=== PATIENT | male | born 1950 | race Caucasian/White ===

== ENCOUNTER 2022-06-29 15:52 | Emergency (ER) | payer BC, MEDICARE ==
[2022-06-29] MEDS ORDERED: PANTOPRAZOLE 40 MG/10 ML VIAL IVP ONE (16:24)
--- NOTE | 2022-06-29 16:26 | ED ---
GI Bleed HPI - General Chief complaint: GI Bleed Stated complaint: GI Bleed Time Seen by Provider: 06/29/22 16:06 Source: patient, EMS, RN notes reviewed Mode of arrival: EMS Limitations: no limitations - History of Present Illness Initial comments: This is a pleasant 71-year-old male with a history of COPD. He presents to the emergency department today complaining of melena. Patient has had about 6 episodes of dark black stool since yesterday. According to the patient's , who is an RN, patient has also been tachycardic, lightheaded, patient also had 2 episodes of syncope. According to the the patient had just stood up and had to sit back down and actually lost consciousness. There was no injury during either event. Patient then had a second syncopal episode when EMS arrived. This been no vomiting. Patient not complaining of any pain at this time. Patient previously had need for blood transfusion and is on a proton pump inhibitor. Apparently this occurred a few years ago. There was no site of bleeding found on either lower or upper endoscopy. Patient does admit to taking about 4 [id number] Aleve per day for wrist pain. POSITIVE lightheadedness and weakness, No headache, no fever or chills, no changes in vision or hearing, no sore throat or difficulty with speech, no neck pain, no chest pain or shortness of breath, no abdominal pain, no nausea or vomiting, no changes in urination or bowel movements, no numbness or tingling, no extremity pain, no skin rashes or lesions. Past medical, surgical, social, and family history reviewed. complaint: melena - Related Data Allergies Allergy/AdvReac Type Severity Reaction Status Date / Time No Known Allergies Allergy Verified 06/29/22 16:07 Review of Systems ROS Statement: Those systems with pertinent positive or pertinent negative responses have been documented in the HPI. ROS Other: All systems not noted in ROS Statement are negative. Past Medical History Past Medical History: COPD, CVA/TIA, Hypertension, Syncope History of Any Multi-Drug Resistant Organisms: None Reported Past Surgical History: Hernia Repair Past Psychological History: Depression Smoking Status: Former smoker Past Alcohol Use History: None Reported Past Drug Use History: None Reported General Exam - General Exam Comments Initial Comments: Vital signs stable, patient afebrile. Patient appears to be a bit pale but does have a capillary refill of less than 2 seconds. There is no evidence of mottling. Moist mucous membranes. Cranial nerves II through XII grossly intact Limitations: no limitations General appearance: alert, in distress (Minimal) Head exam: Present: atraumatic, normocephalic, normal inspection Eye exam: Present: normal appearance, PERRL, EOMI. Absent: scleral icterus, conjunctival injection, periorbital swelling ENT exam: Present: normal exam, mucous membranes moist, normal external ear exam Neck exam: Present: normal inspection. Absent: tenderness, meningismus, lymphadenopathy Respiratory exam: Present: normal lung sounds bilaterally. Absent: respiratory distress, wheezes, rales, rhonchi, stridor Cardiovascular Exam: Present: regular rate, normal rhythm, normal heart sounds. Absent: systolic murmur, diastolic murmur, rubs, gallop, clicks GI/Abdominal exam: Present: soft, normal bowel sounds. Absent: distended, t enderness, guarding, rebound, rigid Rectal exam: Present: normal rectal tone, black stool, other (Chaperoned rectal examination) Extremities exam: Present: normal inspection, full ROM, normal capillary refill. Absent: tenderness, pedal edema, joint swelling, calf tenderness Back exam: Present: normal inspection Neurological exam: Present: alert, oriented X3, CN II-XII intact Psychiatric exam: Present: normal affect, normal mood Skin exam: Present: warm, dry, intact, pallor. Absent: rash, cyanosis, diaphoretic, erythema, urticaria, vesicles, petechiae Course Vital Signs 06/29/22 06/29/22 15:58 17:46 Temperature 97.4 F L Pulse Rate 95 87 Respiratory 16 15 Rate Blood Pressure 139/81 115/81 O2 Sat by Pulse 96 97 Oximetry - Reevaluation(s) Reevaluation #1: 06/29/22 18:27 Lactic acid 2.5. Likely related to hydration status is the patient does not appear to be ill, at least with regards of being septic. The case was discussed in detail with ED attending physician. Presentation, findings, treatment plan discussed in detail. Head Refrigeration Engineer Dr. Mahoney Reevaluation #2: 06/29/22 18:59 Medical record is reviewed Symptoms are improved here in the emergency department Patient is informed of results and questions answered Patient in no distress - Consultations Consultation #1: This discussed in detail with the accepting physician at [facility], Dr. Yates who had sepsis transfer the patient. The transfer procedure and the need for transfer to the patient. Patient voices understanding. Medical Decision Making - Medical Decision Making Patient presents with several episodes of melena, possible diarrhea. Rectal exam was melanotic. Patient in no significant pain. Patient was tachycardic prior to arrival received IV fluids via EMS. Patient hemodynamic stable currently. Patient was noted to have 2 syncopal episodes prior to arrival. Patient likely has gastrointestinal bleeding. Pro time is 80 mg IV push ordered. We'll order a general labs for gastrointestinal bleeding to include cardiac markers. Type and screen, computed tomography scan abdomen and pelvis. Patient likely will need transfer. Patient transferred to [facility] - Lab Data Result diagrams: 06/29/22 17:00 06/29/22 17:00 Lab Results 06/29/22 06/29/22 06/29/22 Range/Units 16:59 17:00 17:00 WBC 11.7 H (3.8-10.6) k/uL RBC 4.60 (4.30-5.90) m/uL Hgb 13.3 (13.0-17.5) gm/dL Hct 39.5 (39.0-53.0) % MCV 86.0 (80.0-100.0) fL MCH 29.0 (25.0-35.0) pg MCHC 33.7 (31.0-37.0) g/dL RDW 13.8 (11.5-15.5) % Plt Count 217 (150-450) k/uL MPV 8.3 Neutrophils % 81 % Lymphocytes % 10 % Monocytes % 6 % Eosinophils % 1 % Basophils % 1 % Neutrophils # 9.5 H (1.3-7.7) k/uL Lymphocytes # 1.2 (1.0-4.8) k/uL Monocytes # 0.7 (0-1.0) k/uL Eosinophils # 0.1 (0-0.7) k/uL Basophils # 0.1 (0-0.2) k/uL Hypochromasia Slight PT (9.0-12.0) sec INR (<1.2) APTT (22.0-30.0) sec Sodium (137-145) mmol/L Potassium (3.5-5.1) mmol/L Chloride (98-107) mmol/L Carbon Dioxide (22-30) mmol/L Anion Gap mmol/L BUN (9-20) mg/dL Creatinine (0.66-1.25) mg/dL Est GFR (CKD-EPI)AfAm (>60 ml/min/1.73 sqM) Est GFR (CKD-EPI)NonAf (>60 ml/min/1.73 sqM) Glucose (74-99) mg/dL Plasma Lactic Acid Dayday (0.7-2.0) mmol/L Calcium (8.4-10.2) mg/dL Magnesium (1.6-2.3) mg/dL Total Bilirubin (0.2-1.3) mg/dL AST (17-59) U/L ALT (4-49) U/L Alkaline Phosphatase (38-126) U/L Troponin I (0.000-0.034) ng/mL NT-Pro-B Natriuret Pep pg/mL Total Protein (6.3-8.2) g/dL Albumin (3.5-5.0) g/dL Stool Occult Blood Positive (Negative) Blood Type A Negative Blood Type Confirm Blood Type Recheck No Previous Record Bld Type Recheck Status CABO Indicated Antibody Screen NEGATIVE Spec Expiration Date 07/02/2022 - 235806/29/22 06/29/22 06/29/22 Range/Units 17:00 17:00 17:00 WBC (3.8-10.6) k/uL RBC (4.30-5.90) m/uL Hgb (13.0-17.5) gm/dL Hct (39.0-53.0) % MCV (80.0-100.0) fL MCH (25.0-35.0) pg MCHC (31.0-37.0) g/dL RDW (11.5-15.5) % Plt Count (150-450) k/uL MPV Neutrophils % % Lymphocytes % % Monocytes % % Eosinophils % % Basophils % % Neutrophils # (1.3-7.7) k/uL Lymphocytes # (1.0-4.8) k/uL Monocytes # (0-1.0) k/uL Eosinophils # (0-0.7) k/uL Basophils # (0-0.2) k/uL Hypochromasia PT 10.7 (9.0-12.0) sec INR 1.0 (<1.2) APTT 20.9 L (22.0-30.0) sec Sodium 137 (137-145) mmol/L Potassium 4.4 (3.5-5.1) mmol/L Chloride 109 H (98-107) mmol/L Carbon Dioxide 21 L (22-30) mmol/L Anion Gap 7 mmol/L BUN 40 H (9-20) mg/dL Creatinine 0.76 (0.66-1.25) mg/dL Est GFR (CKD-EPI)AfAm >90 (>60 ml/min/1.73 sqM) Est GFR (CKD-EPI)NonAf >90 (>60 ml/min/1.73 sqM) Glucose 113 H (74-99) mg/dL Plasma Lactic Acid Dayday 2.5 H* (0.7-2.0) mmol/L Calcium 8.1 L (8.4-10.2) mg/dL Magnesium 2.0 (1.6-2.3) mg/dL Total Bilirubin 0.6 (0.2-1.3) mg/dL AST 23 (17-59) U/L ALT 18 (4-49) U/L Alkaline Phosphatase 64 (38-126) U/L Troponin I (0.000-0.034) ng/mL NT-Pro-B Natriuret Pep pg/mL Total Protein 6.5 (6.3-8.2) g/dL Albumin 3.7 (3.5-5.0) g/dL Stool Occult Blood (Negative) Blood Type Blood Type Confirm Blood Type Recheck Bld Type Recheck Status Antibody Screen Spec Expiration Date 06/29/22 06/29/22 06/29/22 Range/Units 17:00 17:00 17:03 WBC (3.8-10.6) k/uL RBC (4.30-5.90) m/uL Hgb (13.0-17.5) gm/dL Hct (39.0-53.0) % MCV (80.0-100.0) fL MCH (25.0-35.0) pg MCHC (31.0-37.0) g/dL RDW (11.5-15.5) % Plt Count (150-450) k/uL MPV Neutrophils % % Lymphocytes % % Monocytes % % Eosinophils % % Basophils % % Neutrophils # (1.3-7.7) k/uL Lymphocytes # (1.0-4.8) k/uL Monocytes # (0-1.0) k/uL Eosinophils # (0-0.7) k/uL Basophils # (0-0.2) k/uL Hypochromasia PT (9.0-12.0) sec INR (<1.2) APTT (22.0-30.0) sec Sodium (137-145) mmol/L Potassium (3.5-5.1) mmol/L Chloride (98-107) mmol/L Carbon Dioxide (22-30) mmol/L Anion Gap mmol/L BUN (9-20) mg/dL Creatinine (0.66-1.25) mg/dL Est GFR (CKD-EPI)AfAm (>60 ml/min/1.73 sqM) Est GFR (CKD-EPI)NonAf (>60 ml/min/1.73 sqM) Glucose (74-99) mg/dL Plasma Lactic Acid Dayday (0.7-2.0) mmol/L Calcium (8.4-10.2) mg/dL Magnesium (1.6-2.3) mg/dL Total Bilirubin (0.2-1.3) mg/dL AST (17-59) U/L ALT (4-49) U/L Alkaline Phosphatase (38-126) U/L Troponin I <0.012 (0.000-0.034) ng/mL NT-Pro-B Natriuret Pep 205 pg/mL Total Protein (6.3-8.2) g/dL Albumin (3.5-5.0) g/dL Stool Occult Blood (Negative) Blood Type Blood Type Confirm A Negative Blood Type Recheck Bld Type Recheck Status Antibody Screen Spec Expiration Date - EKG Data EKG Comments: EKG done at 1601 and review by the ED attending physician. Reveals sinus rhythm with occasional supraventricular premature complexes. Normal axis. Normal intervals. No acute ST or T-wave changes. - Radiology Data Radiology results: report reviewed (Radiographic imaging interpreted by me. No evidence of acute pathology. Concur with radiology interpretation.), image reviewed Disposition Clinical Impression: Gastrointestinal bleeding Disposition: OTHER INSTITUTION NOT DEFINED Condition: Stable Referrals: Nonstaff,Physician [REFERRING] - 1-2 days Time of Disposition: 19:38 Decision to Admit Reason: Admit from EC Decision Time: 19:38 - Out of Hospital Transfer - Req. Specs Out of Hospital Transfer - Requested Specifics: Other Emergency Center (Dr. Trudy Hammond excepting)
[2022-06-29] MEDS ORDERED: SODIUM CHLORIDE 0.9% 1,000 ML IV SCH (16:30)
[2022-06-29 17:19] LABS: Basophils # (A) 0.1 k/uL (0-0.2); Basophils % (A) 1 %; Eosinophils # (A) 0.1 k/uL (0-0.7); Eosinophils % (A) 1 %; HCT 39.5 % (39.0-53.0); HGB 13.3 gm/dL (13.0-17.5); Hypochromasia Slight; Lymphocytes # (A) 1.2 k/uL (1.0-4.8); Lymphocytes % (A) 10 %; MCHC 33.7 g/dL (31.0-37.0); Mean Platelet Volume 8.3; Monocytes # (A) 0.7 k/uL (0-1.0); Monocytes % (A) 6 %; Neutrophils # (A) 9.5 k/uL (1.3-7.7); Neutrophils % (A) 81 %; Platelet Count 217 k/uL (150-450); RDW 13.8 % (11.5-15.5); WBC 11.7 k/uL (3.8-10.6)
--- NOTE | 2022-06-29 17:22 | XR ---
EXAMINATION TYPE: XR chest 1V portable DATE OF EXAM: 06/29/2022 COMPARISON: NONE HISTORY: Syncope TECHNIQUE: Single view FINDINGS: Heart and mediastinum are normal. Lungs are clear. Diaphragm is normal. Bony thorax is inta ct. There is hiatal hernia. IMPRESSION: No active cardiopulmonary disease. Hiatal hernia noted.
[2022-06-29 17:40] LABS: Prothrombin Time 10.7 sec (9.0-12.0)
[2022-06-29 17:46] LABS: ALT 18 U/L (4-49); AST 23 U/L (17-59); African American GFR (CKD) >90 (>60 ml/min/1.73 sqM); Albumin 3.7 g/dL (3.5-5.0); Alkaline Phosphatase 64 U/L (38-126); Anion Gap 7 mmol/L; Blood Urea Nitrogen 40 mg/dL (9-20); Calcium 8.1 mg/dL (8.4-10.2); Carbon Dioxide 21 mmol/L (22-30); Chloride 109 mmol/L (98-107); Glucose 113 mg/dL (74-99); Non-African American GFR(CKD) >90 (>60 ml/min/1.73 sqM); Potassium 4.4 mmol/L (3.5-5.1); Sodium 137 mmol/L (137-145); Total Bilirubin 0.6 mg/dL (0.2-1.3); Total Protein 6.5 g/dL (6.3-8.2)
--- NOTE | 2022-06-29 18:59 | CT ---
EXAMINATION TYPE: CT angio abdomen pelvis DATE OF EXAM: 06/29/2022 COMPARISON: None HISTORY: Dark red stool today and abdominal pain. CT DLP: 1489.1 mGycm Automated exposure control for dose reduction was used. CONTRAST: Performed without and with IV Contrast, patient injected with 100ml mL of Isovue 370. There are Three-D postprocessed images. Exam performed without and with the IV contrast. There is a large hiatal hernia. There is no pleural effusion. No pericardial effusion. Liver spleen p ancreas gallbladder appear intact. The bile ducts are not dilated. There is no adrenal mass. Kidneys show normal size and contour. No hydronephrosis. Ureters are not di lated. Appendix appears normal. There is small appendicolith. Bladder distends smoothly. There are sm all bilateral fat-containing inguinal hernias. No free fluid in the pelvis. No pelvic mass. No mesenteric edema. No ascites or free air. No sign of a bowel obstruction. Lumbar vertebrae have no rmal alignment. No compression fracture. Bony pelvis is intact. The hip joints are intact. There are multiple colonic diverticula. There is arterial flow in the celiac artery and superior mesenteric artery. There is arterial flow in the renal and iliac and femoral arteries. No evidence of hemodynamic stenosis. No arterial aneurysm or dissection. Abdominal aorta is atheromatous. No evidence of contrast extravasation. IMPRESSION: Mild atherosclerotic vascular calcification. No evidence of hemodynamic stenosis. No arterial aneurys m or dissection. No evidence of any active GI bleeding.
[2022-06-29 19:28] LABS: Partial Thromboplastin Time 20.9 sec (22.0-30.0)
[2022-06-29 21:28] VITALS: BP 137/87; PULSE 80; RESP 19; TEMP 98.4
== END 2022-06-29 21:27 | disposition other institution (70) ==
LOC: EC 15:52
DX: K92.2 Gastrointestinal hemorrhage, unspecified (principal); J44.9 Chronic obstructive pulmonary disease, unspecified; I10 Essential (primary) hypertension; F32.A Depression, unspecified; Z87.891 Personal history of nicotine dependence
CPT/HCPCS: 36415; 93005; 86900; 86901; 83880; 80053; 83605; 83735; 84484; 85025; 85610; 85730; 86850; 82272; 71045; 74174; 99285; 96374; 96361 ×4; C9113; Q9967; 96372

== ENCOUNTER 2023-10-09 18:23 | Emergency (ER) | payer BC, MEDICARE ==
[2023-10-09 19:05] LABS: Anisocytosis Slight; Basophils # (A) 0.1 k/uL (0-0.2); Basophils % (A) 1 %; Eosinophils # (A) 0.4 k/uL (0-0.7); Eosinophils % (A) 7 %; HCT 34.5 % (39.0-53.0); HGB 10.4 gm/dL (13.0-17.5); Hypochromasia Marked; Lymphocytes % (A) 18 %; MCH 19.9 pg (25.0-35.0); MCHC 30.2 g/dL (31.0-37.0); MCV 65.8 fL (80.0-100.0); Mean Platelet Volume 7.6; Microcytosis Marked; Monocytes # (A) 0.4 k/uL (0-1.0); Monocytes % (A) 6 %; Neutrophils # (A) 3.9 k/uL (1.3-7.7); Neutrophils % (A) 66 %; Platelet Count 303 k/uL (150-450); Poikilocytosis Slight; RBC 5.25 m/uL (4.30-5.90); RDW 17.7 % (11.5-15.5); WBC 5.9 k/uL (3.8-10.6)
[2023-10-09 19:28] LABS: ALT 29 U/L (4-49); AST 44 U/L (17-59); African American GFR (CKD) 85 (>60 ml/min/1.73 sqM); Albumin 3.6 g/dL (3.5-5.0); Alkaline Phosphatase 67 U/L (38-126); Anion Gap 6 mmol/L; Blood Urea Nitrogen 9 mg/dL (9-20); Calcium 8.2 mg/dL (8.4-10.2); Carbon Dioxide 20 mmol/L (22-30); Chloride 110 mmol/L (98-107); Glucose 111 mg/dL (74-99); Non-African American GFR(CKD) 73 (>60 ml/min/1.73 sqM); Potassium 3.9 mmol/L (3.5-5.1); Sodium 136 mmol/L (137-145); Total Bilirubin 0.7 mg/dL (0.2-1.3); Total Protein 6.9 g/dL (6.3-8.2)
--- NOTE | 2023-10-09 19:30 | XR ---
EXAMINATION TYPE: XR chest 2V DATE OF EXAM: 10/09/2023 COMPARISON: 06/29/2022 INDICATION: Shortness of breath hypertension TECHNIQUE: Frontal and lateral views of the chest are obtained. FINDINGS: The heart size is normal. The pulmonary vasculature is normal. There may be some left perihilar infiltrate present. Follow-up is recommended. IMPRESSION: 1. Small opacity at the left hilar region. Correlate for an infiltrate such as atelectasis or pneumon ia. Mass is not excluded. Follow-up is recommended. 2. Acute pulmonary process not otherwise apparent.
[2023-10-09 19:41] LABS: Prothrombin Time 11.2 sec (10.0-12.5)
[2023-10-09 19:46] LABS: Partial Thromboplastin Time 18.8 sec (22.0-30.0)
--- NOTE | 2023-10-09 20:05 | ED ---
General Adult HPI - General Source: patient Mode of arrival: ambulatory Limitations: no limitations <Hugo Kitchen - Last Filed: 10/09/23 20:05> <Ean Odom - Last Filed: 10/10/23 00:22> - General Chief complaint: Shortness of Breath Stated complaint: HTN Time Seen by Provider: 10/09/23 20:04 - History of Present Illness Initial comments: Quicknote 72-year-old male presents to ED with a chief complaint of shortness of breath. She states the past few days has been more fatigued than usual, has a cough, and has had more out of breath than usual. (Hugo Kitchen) Dictation was produced using avVenta dictation software. please excuse any grammatical, word or spelling errors. Chief Complaint: 72-year-old male presents with hypertension History of Present Illness: Patient 72-year-old male presents to the emergency department hypertension. Patient had a brief nosebleed while running errands today. decided to check his blood pressure. It was allegedly 175/105. Patient has history of hypertension takes antihypertensive medications. He has no headache. No chest pain or shortness of breath and no focal neurologic deficits. Patient otherwise has no complaints. Patient does report having been feeling slightly weak last 3 to 4 days. The ROS documented in this emergency department record has been reviewed and confirmed by me. Those systems with pertinent positive or negative responses have been documented in the HPI. All other systems are other negative and/or noncontributory. (Ean Odom) - Related Data Home Medications Medication Instructions Recorded Confirmed Aspirin EC [Ecotrin Low Dose] 81 mg PO DAILY 06/29/22 06/29/22 Escitalopram [Lexapro] 20 mg PO DAILY 06/29/22 06/29/22 Esomeprazole Magnesium [NexIUM] 40 mg PO DAILY 06/29/22 06/29/22 Ipratropium [place] [Atrovent Hfa] 2 puff INHALATION RT-QID PRN 06/29/22 06/29/22 Naproxen Sodium [Aleve] 440 mg PO DAILY 06/29/22 06/29/22 Allergies Allergy/AdvReac Type Severity Reaction Status Date / Time No Known Allergies Allergy Verified 06/29/22 20:10 Review of Systems ROS Other: All systems not noted in ROS Statement are negative. <Hugo Kitchen - Last Filed: 10/09/23 20:05> ROS Other: All systems not noted in ROS Statement are negative. <Ean Odom - Last Filed: 10/10/23 00:22> ROS Statement: Those systems with pertinent positive or pertinent negative responses have been documented in the HPI. Past Medical History Past Medical History: COPD, CVA/TIA, Hypertension, Syncope History of Any Multi-Drug Resistant Organisms: None Reported Past Surgical History: Hernia Repair Past Psychological History: Depression Smoking Status: Former smoker Past Alcohol Use History: None Reported Past Drug Use History: None Reported <Hugo Kitchen - Last Filed: 10/09/23 20:05> General Exam Limitations: no limitations <Hugo Kitchen - Last Filed: 10/09/23 20:05> <Ean Odom - Last Filed: 10/10/23 00:22> - General Exam Comments Initial Comments: Visual Physical Exam Vital signs reviewed General: Well-appearing, nontoxic, no acute distress. Head: Normocephalic, atraumatic Eyes: PERRLA, EOMI ENT: Airway patent Chest: Nonlabored breathing Skin: No visual rash, normal skin tone Neuro: Alert and oriented 3 Musculoskeletal: No gross abnormalities (Hugo Kitchen) PHYSICAL EXAM: General Impression: Alert and oriented x3, not in acute distress HEENT: Normocephalic atraumatic, extra-ocular movements intact, pupils equal and reactive to light bilaterally, mucous membranes moist. Cardiovascular: Heart regular rate and rhythm Chest: Able to complete full sentences, no retractions, no tachypnea Abdomen: abdomen soft, non-tender, non-distended, no organomegaly Musculoskeletal: Pulses present and equal in all extremities, no peripheral edema Motor: no focal deficits noted Neurological: CN II-XII grossly intact, no focal motor or sensory deficits noted Skin: Intact with no visualized rashes Psych: Normal affect and mood (Ean Odom) Course Vital Signs 10/09/23 10/09/23 10/09/23 18:29 22:00 23:44 Temperature 98.2 F 97.8 F Pulse Rate 86 72 78 Respiratory 16 18 18 Rate Blood Pressure 155/93 161/122 149/69 O2 Sat by Pulse 97 98 98 Oximetry Medical Decision Making - Lab Data Result diagrams: 10/09/23 18:56 10/09/23 18:56 <Hugo Kitchen - Last Filed: 10/09/23 20:05> - Lab Data Result diagrams: 10/09/23 18:56 10/09/23 18:56 <Ean Odom - Last Filed: 10/10/23 00:22> - Medical Decision Making Quicknote portion performed. Signed Hugo Kitchen PA-C (Hugo Kitchen) Was pt. sent in by a medical professional or institution (, KRISTIAN, LICENSED AND CERTIFIED MIDWIFE, urgent care, hospital, or [facility]...) When possible be specific @ -No Did you speak to anyone other than the patient for history (EMS, parent, family, police, friend...)? What history was obtained from this source @ -No Did you review nursing and triage notes (agree or disagree)? Why? @ -I reviewed and agree with nursing and triage notes Were old charts reviewed (outside hosp., previous admission, EMS record, old EKG, old radiological studies, urgent care reports/EKG's, [facility] records)? Report findings @ -No old charts were reviewed Differential Diagnosis (chest pain, altered mental status, abdominal pain women, abdominal pain men, vaginal bleeding, musculoskeletal, weakness, fever, dyspnea, syncope, headache, dizziness, GI bleed, back pain, seizure, CVA, palpatations, mental health)? @ -Not applicable EKG interpreted by me (3pts min.). @ -None done X-rays interpreted by me (1pt min.). @ -Chest x-ray is unremarkable CT interpreted by me (1pt min.). @ -None done U/S interpreted by me (1pt. min.). @ -None done What testing was considered but not performed or refused? (CT, X-rays, U/S, labs)? Why? @ -None What meds were considered but not given or refused? Why? @ -None Did you discuss the management of the patient with other professionals (professionals i.e. , KRISTIAN, LICENSED AND CERTIFIED MIDWIFE, lab, RT, psych nurse, social media executive, doughnut glazier, teacher, aoc airspace control officer, case management director)? Give summary @ -No Was smoking cessation discussed for >3mins.? @ -No Was critical care preformed (if so, how long)? @ -No Were there social determinants of health that impacted care today? How? (Homelessness, low income, unemployed, alcoholism, drug addiction, transportation, low edu. Level, literacy, decrease access to med. care, fdc, rehab)? @ -No Was there de-escalation of care discussed even if they declined (Discuss DNR or withdrawal of care, Hospice)? DNR status @ -No What co-morbidities impacted this encounter? (DM, HTN, Smoking, COPD, CAD, Cancer, CVA, ARF, Chemo, Hep., AIDS, mental health diagnosis, sleep apnea, morbid obesity)? @ -None Was patient admitted / discharged? Hospital course, mention meds given and route, prescriptions, significant lab abnormalities, going to OR and other pertinent info. @ -72-year-old male presents to the emergency department for asymptomatic hypertension. Vital signs stable. Patient well-appearing at the bedside. Labs ordered by triage physician human resources assistant was reviewed. He did have a lactic acidosis of 2.9. Rest of labs within acceptable limits. Patient given IV fluids. Repeat lactic is 1.2. Blood pressure and rest of vital signs improved. Patient observed emergency department for 5 hours and 40 minutes and on reevaluation is well-appearing stable for discharge. Vies follow-up with primary care doctor. Undiagnosed new problem with uncertain prognosis? @ -No Drug Therapy requiring intensive monitoring for toxicity (Heparin, Nitro, Insulin, Cardizem)? @ -No Were any procedures done? @ -No Diagnosis/symptom? Acute, or Chronic, or Acute on Chronic? Uncomplicated (without systemic symptoms) or Complicated (systemic symptoms)? @ -Asymptomatic hypertension Side effects of treatment? @ -No Exacerbation, Progression, or Severe Exacerbation? @ -No Poses a threat to life or bodily function? How? (Chest pain, [place], PR, pneumonia, PE, COPD, DKA, ARF, appy, cholecystitis, CVA, Diverticulitis, Homicidal, Suicidal, threat to staff... and all critical care pts) @ -No (Ean Odom) - Lab Data Lab Results 10/09/23 10/09/23 10/09/23 Range/Units 18:56 18:56 18:56 WBC 5.9 (3.8-10.6) k/uL RBC 5.25 (4.30-5.90) m/uL Hgb 10.4 L (13.0-17.5) gm/dL Hct 34.5 L (39.0-53.0) % MCV 65.8 L (80.0-100.0) fL MCH 19.9 L (25.0-35.0) pg MCHC 30.2 L (31.0-37.0) g/dL RDW 17.7 H (11.5-15.5) % Plt Count 303 (150-450) k/uL MPV 7.6 Neutrophils % 66 % Lymphocytes % 18 % Monocytes % 6 % Eosinophils % 7 % Basophils % 1 % Neutrophils # 3.9 (1.3-7.7) k/uL Lymphocytes # 1.0 (1.0-4.8) k/uL Monocytes # 0.4 (0-1.0) k/uL Eosinophils # 0.4 (0-0.7) k/uL Basophils # 0.1 (0-0.2) k/uL Hypochromasia Marked Poikilocytosis Slight Anisocytosis Slight Microcytosis Marked PT (10.0-12.5) sec INR (<1.2) APTT (22.0-30.0) sec Sodium 136 L (137-145) mmol/L Potassium 3.9 (3.5-5.1) mmol/L Chloride 110 H (98-107) mmol/L Carbon Dioxide 20 L (22-30) mmol/L Anion Gap 6 mmol/L BUN 9 (9-20) mg/dL Creatinine 1.02 (0.66-1.25) mg/dL Est GFR (CKD-EPI)AfAm 85 (>60 ml/min/1.73 sqM) Est GFR (CKD-EPI)NonAf 73 (>60 ml/min/1.73 sqM) Glucose 111 H (74-99) mg/dL Lactic Ac Sepsis Rflx Plasma Lactic Acid Dayday 2.9 H* (0.7-2.0) mmol/L Calcium 8.2 L (8.4-10.2) mg/dL Total Bilirubin 0.7 (0.2-1.3) mg/dL AST 44 (17-59) U/L ALT 29 (4-49) U/L Alkaline Phosphatase 67 (38-126) U/L Troponin I (0.000-0.034) ng/mL Total Protein 6.9 (6.3-8.2) g/dL Albumin 3.6 (3.5-5.0) g/dL 10/09/23 10/09/23 10/09/23 Range/Units 18:56 18:56 20:37 WBC (3.8-10.6) k/uL RBC (4.30-5.90) m/uL Hgb (13.0-17.5) gm/dL Hct (39.0-53.0) % MCV (80.0-100.0) fL MCH (25.0-35.0) pg MCHC (31.0-37.0) g/dL RDW (11.5-15.5) % Plt Count (150-450) k/uL MPV Neutrophils % % Lymphocytes % % Monocytes % % Eosinophils % % Basophils % % Neutrophils # (1.3-7.7) k/uL Lymphocytes # (1.0-4.8) k/uL Monocytes # (0-1.0) k/uL Eosinophils # (0-0.7) k/uL Basophils # (0-0.2) k/uL Hypochromasia Poikilocytosis Anisocytosis Microcytosis PT 11.2 (10.0-12.5) sec INR 1.0 (<1.2) APTT 18.8 L (22.0-30.0) sec Sodium (137-145) mmol/L Potassium (3.5-5.1) mmol/L Chloride (98-107) mmol/L Carbon Dioxide (22-30) mmol/L Anion Gap mmol/L BUN (9-20) mg/dL Creatinine (0.66-1.25) mg/dL Est GFR (CKD-EPI)AfAm (>60 ml/min/1.73 sqM) Est GFR (CKD-EPI)NonAf (>60 ml/min/1.73 sqM) Glucose (74-99) mg/dL Lactic Ac Sepsis Rflx Y Plasma Lactic Acid Dayday (0.7-2.0) mmol/L Calcium (8.4-10.2) mg/dL Total Bilirubin (0.2-1.3) mg/dL AST (17-59) U/L ALT (4-49) U/L Alkaline Phosphatase (38-126) U/L Troponin I <0.012 (0.000-0.034) ng/mL Total Protein (6.3-8.2) g/dL Albumin (3.5-5.0) g/dL 10/09/23 Range/Units 23:12 WBC (3.8-10.6) k/uL RBC (4.30-5.90) m/uL Hgb (13.0-17.5) gm/dL Hct (39.0-53.0) % MCV (80.0-100.0) fL MCH (25.0-35.0) pg MCHC (31.0-37.0) g/dL RDW (11.5-15.5) % Plt Count (150-450) k/uL MPV Neutrophils % % Lymphocytes % % Monocytes % % Eosinophils % % Basophils % % Neutrophils # (1.3-7.7) k/uL Lymphocytes # (1.0-4.8) k/uL Monocytes # (0-1.0) k/uL Eosinophils # (0-0.7) k/uL Basophils # (0-0.2) k/uL Hypochromasia Poikilocytosis Anisocytosis Microcytosis PT (10.0-12.5) sec INR (<1.2) APTT (22.0-30.0) sec Sodium (137-145) mmol/L Potassium (3.5-5.1) mmol/L Chloride (98-107) mmol/L Carbon Dioxide (22-30) mmol/L Anion Gap mmol/L BUN (9-20) mg/dL Creatinine (0.66-1.25) mg/dL Est GFR (CKD-EPI)AfAm (>60 ml/min/1.73 sqM) Est GFR (CKD-EPI)NonAf (>60 ml/min/1.73 sqM) Glucose (74-99) mg/dL Lactic Ac Sepsis Rflx Plasma Lactic Acid Dayday 1.2 (0.7-2.0) mmol/L Calcium (8.4-10.2) mg/dL Total Bilirubin (0.2-1.3) mg/dL AST (17-59) U/L ALT (4-49) U/L Alkaline Phosphatase (38-126) U/L Troponin I (0.000-0.034) ng/mL Total Protein (6.3-8.2) g/dL Albumin (3.5-5.0) g/dL Disposition <Hugo Kitchen - Last Filed: 10/09/23 20:05> Is patient prescribed a controlled substance at d/c from ED?: No Time of Disposition: 00:22 <Ean Odom - Last Filed: 10/10/23 00:22> Clinical Impression: Hypertension Disposition: HOME SELF-CARE Condition: Good Instructions (If sedation given, give patient instructions): Hypertension (ED) Referrals: Pavan Hassan MD [Primary Care Provider] - 1-2 days
[2023-10-09 22:25] VITALS: RESP 18; TEMP 97.8
[2023-10-09] MEDS: SODIUM CHLORIDE 0.9% 1,000 ML IV STA (23:13)
[2023-10-09 23:52] VITALS: BP 149/69; PULSE 78
== END 2023-10-10 00:30 | disposition home or self-care (01) ==
LOC: EC 18:23
DX: I10 Essential (primary) hypertension (principal); E87.20 Acidosis, unspecified; J44.9 Chronic obstructive pulmonary disease, unspecified; F32.A Depression, unspecified; Z79.82 Long term (current) use of aspirin; Z79.899 Other long term (current) drug therapy; Z86.73 Personal history of transient ischemic attack (TIA), and cerebral infarction without residual deficits; Z87.891 Personal history of nicotine dependence
CPT/HCPCS: 36415; 71046; 80053; 83605; 84484; 85025; 85610; 85730; 93005; 96360; 99285

== ENCOUNTER → 2023-10-27 | Outpatient (CLI) | payer MEDICARE ==
[2023-10-27 12:50] LABS: African American GFR (CKD) 24 (>60 ml/min/1.73 sqM); Blood Urea Nitrogen 37 mg/dL (9-20); Non-African American GFR(CKD) 21 (>60 ml/min/1.73 sqM)
[2023-10-27 13:22] LABS: African American GFR (CKD) 23 (>60 ml/min/1.73 sqM); Blood Urea Nitrogen 37 mg/dL (9-20); Non-African American GFR(CKD) 20 (>60 ml/min/1.73 sqM)
--- NOTE | 2023-10-27 15:52 | CT ---
EXAMINATION TYPE: CT chest wo con CT DLP: 531 mGycm, Automated exposure control for dose reduction was used. DATE OF EXAM: 10/27/2023 1:52 PM COMPARISON: No prior chest CT for comparison. Chest radiograph 06/29/2022. And chest x-ray 10/09/2023 CLINICAL INDICATION:Male, 73 years old with history of R91.8 OTHER NONSPECIFIC ABNORMAL FINDING OF JEWELL NG F; PHH, f/u on lung nodule. Abnormal cxr. TECHNIQUE: Multiple axial images were obtained through the chest. Sagittal and coronal reformats were created for review. Contrast used: mL of (None if empty) Oral contrast used: (None if empty) FINDINGS: LUNGS/ PLEURA: Biapical scarring is present. Fibrous pleural thickening seen in the apices. Large b ullae in the lower lobes and upper lobes likely resulting in shortness of breath. AIRWAY: Patent and unremarkable. HEART: Size within normal limits. MEDIASTINUM: No gross evidence of adenopathy. VASCULATURE: No aortic aneurysm. MUSCULOSKELETAL: No acute osseous abnormalities SOFT TISSUES/LYMPH NODES: No lymphadenopathy appreciated. Very large hiatal hernia with one third of the stomach above the diaphragm LOWER NECK: No significant findings. UPPER ABDOMEN: No significant findings. IMPRESSION: Large hiatal hernia. No pulmonary parenchymal mass. No sizable pulmonary nodules. No micronodules identified. Severe bullous emphysema.
== END | disposition home or self-care (01) ==
LOC: RADCTMAIN 11:56
PROVIDERS: ATTEND Family Medicine
DX: J43.9 Emphysema, unspecified (principal); K44.9 Diaphragmatic hernia without obstruction or gangrene; R91.8 Other nonspecific abnormal finding of lung field
CPT/HCPCS: 36415; 71250; 82565; 84520

== ENCOUNTER → 2023-11-08 | Outpatient (CLI) | payer MEDICARE ==
[2023-11-08 22:53] LABS: HCT 37.8 % (39.6-50.0); HGB 10.4 g/dL (13.0-17.0); MCH 18.8 pg (27.0-32.0); MCHC 27.5 g/dL (32.0-37.0); MCV 68.2 FL (80.0-97.0); Mean Platelet Volume 10.6 FL (9.5-12.2); NRBC Per 100 WBC 0 X 10*3/uL (0.00-0.01); Platelet Count 394 X 10*3/uL (140-440); RBC 5.54 X 10*6/uL (4.40-5.60); RDW 21.4 % (11.5-14.5); WBC 8.37 X 10*3/uL (4.50-10.00)
[2023-11-08 23:21] LABS: Basophils # (A) 0.14 X 10*3/uL (0.00-0.10); Basophils % (A) 1.7 %; Elliptocytes 2+; Eosinophils # (A) 0.75 X 10*3/uL (0.04-0.35); Lymphocytes # (A) 2.37 X 10*3/uL (0.90-5.00); Lymphocytes % (A) 28.3 %; Microcytosis (M) 2+; Monocytes # (A) 0.73 X 10*3/uL (0.20-1.00); Monocytes % (A) 8.7 %; Neutrophils # (A) 4.35 X 10*3/uL (1.80-7.70); Neutrophils % (A) 51.9 %; Toxic Vacuolation 2+
== END | disposition home or self-care (01) ==
LOC: LABPAT 10:41
PROVIDERS: ATTEND Surgery
DX: Z01.812 Encounter for preprocedural laboratory examination (principal); K21.00 Gastro-esophageal reflux disease with esophagitis, without bleeding; I48.91 Unspecified atrial fibrillation; R94.31 Abnormal electrocardiogram [ECG] [EKG]
CPT/HCPCS: 85025; 93005

== ENCOUNTER 2023-11-10 14:25 | Day surgery (SDC) | payer MEDICARE ==
[~2023-11-10 14:25] MED LIST: LIDOCAINE 1% (10MG/ML) FOR IV START INTRADERMA PRN
[2023-11-10] MEDS: LACTATED RINGERS 1,000 ML IV SCH (15:13)
[2023-11-10] MEDS ORDERED: PROPOFOL 10 MG/ML 20 ML VIAL IV ONE (15:26)
[2023-11-10] MEDS ORDERED: LIDOCAINE 1% INJ 10MG/ML (20 ML MDV) ONE (15:26)
--- NOTE | 2023-11-10 15:33 | P.GSHP ---
History of Present Illness H&P Date: 11/10/23 Chief Complaint: GERD, dysphagia this is a 70-year-old male who presents safer EGD. Patient has had complaints of GERD and dysphagia. His recent CAT scan shows evidence of a large hiatal hernia. Past Medical History Past Medical History: COPD, CVA/TIA, Hypertension, Syncope History of Any Multi-Drug Resistant Organisms: None Reported Past Surgical History: Hernia Repair Past Psychological History: Depression Smoking Status: Former smoker Past Alcohol Use History: None Reported Past Drug Use History: None Reported Medications and Allergies Home Medications Medication Instructions Recorded Confirmed Type Aspirin EC [Ecotrin Low Dose] 81 mg PO DAILY 06/29/22 11/10/23 History Escitalopram [Lexapro] 20 mg PO DAILY 06/29/22 11/10/23 History Esomeprazole Magnesium [NexIUM] 40 mg PO DAILY 06/29/22 11/10/23 History Ipratropium [place] [Atrovent Hfa] 2 puff INHALATION RT-QID PRN 06/29/22 11/10/23 History Naproxen Sodium [Aleve] 440 mg PO DAILY 06/29/22 11/10/23 History Allergies Allergy/AdvReac Type Severity Reaction Status Date / Time No Known Allergies Allergy Verified 11/10/23 14:53 Surgical - Exam Vital Signs Temp Pulse Resp BP Pulse Ox 97.4 F L 55 L 16 128/59 96 11/10/23 14:59 11/10/23 14:59 11/10/23 14:59 11/10/23 14:59 11/10/23 14:59 - General well developed, well nourished, no distress - Eyes PERRL - ENT normal pinna - Neck no masses - Respiratory normal expansion - Cardiovascular Rhythm: regular - Abdomen Abdomen: soft, non tender Assessment and Plan Assessment: GERD. We'll perform EGD.
--- NOTE | 2023-11-10 15:36 | P.OP ---
Date of Procedure: 11/10/23 Preoperative Diagnosis: GERD Postoperative Diagnosis: antral gastritis Hiatal hernia Procedure(s) Performed: EGD Anesthesia: MAC Surgeon: Tacos Early Pathology: other (antrum, esophagus) Description of Procedure: the patient's placed on the endoscopy table in the lateral position. He received IV sedation. The gastro-/oropharynx passed in the esophagus and stomach. Scope was placed through the pylorus. The first and second portion of the duodenum appeared normal. Scope was brought back the antrum this appeared mildly inflamed. A biopsies performed. Scope was then retroflexed and remainder the stomach appeared normal. There was a large hiatal hernia seen. The GE junction was at 37 cm. The distal esophagus appeared inflamed. A biopsi es performed. The proximal esophagus appeared normal. Scope withdrawn for patient.
[2023-11-10 15:43] VITALS: TEMP 97.4
[2023-11-10 16:27] VITALS: BP 139/68; PULSE 63; RESP 20
== END 2023-11-10 16:29 | disposition home or self-care (01) ==
LOC: ORWHC2ENDO 14:25
PROVIDERS: ATTEND Surgery
DX: K29.50 Unspecified chronic gastritis without bleeding (principal); K21.00 Gastro-esophageal reflux disease with esophagitis, without bleeding; K44.9 Diaphragmatic hernia without obstruction or gangrene; I10 Essential (primary) hypertension; I48.91 Unspecified atrial fibrillation; J44.9 Chronic obstructive pulmonary disease, unspecified; N28.9 Disorder of kidney and ureter, unspecified; F32.A Depression, unspecified; G40.909 Epilepsy, unspecified, not intractable, without status epilepticus; Z87.891 Personal history of nicotine dependence; Z86.73 Personal history of transient ischemic attack (TIA), and cerebral infarction without residual deficits; Z79.82 Long term (current) use of aspirin; Z79.899 Other long term (current) drug therapy; Z98.890 Other specified postprocedural states
CPT/HCPCS: 88305; 43239; J2001; J2704

== ENCOUNTER → 2023-11-12 | Outpatient (CLI) | payer MEDICARE ==
--- NOTE | 2023-11-12 18:44 | US ---
EXAMINATION TYPE: US kidneys/renal and bladder DATE OF EXAM: 11/12/2023 COMPARISON: CT 06/29/2022 CLINICAL INDICATION: Male, 73 years old with history of N18.4 CHRONIC KIDNEY DISEASE, STAGE 4 (SEVERE ); CKD EXAM MEASUREMENTS: Right Kidney: 10.0 x 3.8 x 5.0 cm Left Kidney: 10.3 x 5.2 x 4.0 cm Slightly limited due to overlying bowel Right Kidney: No hydronephrosis or masses seen as best visualized today Left Kidney: No hydronephrosis or masses seen as best visualized today Bladder: wnl as best seen Bilateral Jets seen: No IMPRESSION: 1. Renal ultrasound appears unremarkable.
== END | disposition home or self-care (01) ==
LOC: RADUSWWP 13:44
PROVIDERS: ATTEND Family Medicine
DX: N18.4 Chronic kidney disease, stage 4 (severe) (principal)
CPT/HCPCS: 76770

== ENCOUNTER 2023-12-02 05:57 | Day surgery (SDC) | payer MEDICARE ==
[2023-12-02] MEDS ORDERED: LIDOCAINE 1% (10MG/ML) FOR IV START INTRADERMA PRN (06:09)
[2023-12-02] MEDS ORDERED: MIDAZOLAM 2 MG/2 ML VIAL IV PRN (07:00)
[2023-12-02] MEDS: LACTATED RINGERS 1,000 ML IV SCH ×2 (07:03→14:36)
[2023-12-02] MEDS: DEXAMETHASONE SOD PHOSPHATE 4 MG/ML 1 ML VIAL IV ONE (07:23)
[2023-12-02] MEDS: ONDANSETRON 4 MG/2 ML VIAL IVP ONE (07:23)
[2023-12-02] MEDS: IPRATROPIUM-ALBUTEROL 3 ML NEB ONE (07:23)
[2023-12-02] MEDS ORDERED: SUCCINYLCHOLINE CHLORIDE 200 MG/10 ML VIAL IV ONE (07:32)
[2023-12-02] MEDS ORDERED: KETOROLAC 15 MG/ML 1 ML VIAL ONE (07:32)
[2023-12-02] MEDS ORDERED: ROCURONIUM 10 MG/ML (5 ML VIAL) IV ONE (07:32)
[2023-12-02] MEDS ORDERED: MIDAZOLAM 2 MG/2 ML VIAL ONE (07:32)
[2023-12-02] MEDS ORDERED: PROPOFOL 10 MG/ML 20 ML VIAL IV ONE (07:32)
[2023-12-02] MEDS ORDERED: KETAMINE HCL IN 0.9 % NACL 50 MG/5 ML SYRINGE ONE (07:32)
[2023-12-02] MEDS ORDERED: fentaNYL (PF) 50 MCG/ML 2 ML AMP ONE (07:32)
[2023-12-02] MEDS ORDERED: ceFAZolin 1 GM/50 ML BAG (PMX) ONE (07:32)
[2023-12-02] MEDS ORDERED: PHENYLEPHRINE 10 MG/ML VIAL ONE (07:32)
[2023-12-02] MEDS ORDERED: GLYCOPYRROLATE 0.2 MG/ML 2 ML VIAL ONE (07:32)
[2023-12-02] MEDS ORDERED: NEOSTIGMINE 1 MG/ML 10 ML VIAL ONE (07:32)
[2023-12-02] MEDS ORDERED: HEPARIN SODIUM,PORCINE 5,000 UNIT/ML 1 ML VIAL ONE (07:32)
[2023-12-02] MEDS: SODIUM CHLORIDE 0.9% 50 ML with ceFAZolin 2,000 MG IV ONE (07:45)
[2023-12-02] MEDS: LIDOCAINE 1%-EPI 1:100,000 20 ML VIAL SQ ONE (08:04)
--- NOTE | 2023-12-02 08:46 | P.OP ---
Date of Procedure: 12/02/23 Preoperative Diagnosis: paraesophageal hiatal hernia Postoperative Diagnosis: paraesophageal hiatal hernia Procedure(s) Performed: laparoscopic Opal fundoplication Anesthesia: JATINDER Surgeon: Tacos Early Estimated Blood Loss (ml): 5 Pathology: none sent Condition: stable Disposition: PACU Description of Procedure: Ney patient was placed on the operating table in the supine position. The patient received general anesthesia. And was placed in dorsal lithotomy position. The patient was prepped and draped in the usual sterile fashion. The skin incision sites were anesthetized with 1% local Xylocaine. The skin was incised in the left periumbilical area and then using a blade less 5 mm trocar under direct visualization panel cavity was entered. After adequate insufflation the laparoscope was then placed into the peritoneal cavity. Next a 5 mm trochars placed in the right epigastric position. Another 5 millimeter trocar the right lateral position. Another 5 millimeter trocar in the left lateral position a 5 mm trocar is placed in the left epigastric position. And then the initial 5 mm trocar was exchanged for a 10 mm trocar. The left lateral lobe liver was retracted. The hernia was seen. The crural defect was then dissected using the Harmonic scissors device. A 360 crural dissection was performed the esophagus stomach was reduced back into the peritoneal Cavity. The crural defect was then closed using 2-0 Ethibond suture. Next the fundus of the stomach was mobilized using the [place] scissors device. and then a 58- [place] bougie dilator was placed oropharynx passed into the esophagus and stomach the fundal plication wrap was then performed by grasping the fundus posteriorly and bringing it around the esophagus and stomach fundoplication was then performed using 2-0 Ethibond suture. Care was taken that the fundal loc ation rested over top of the intra-abdominal esophagus. There was no injury seen to the stomach or esophagus. The dilator was then withdrawn. The abdomen was irrigated there is no bleeding seen. The trochars were then withdrawn and then skin incision sites were closed using 3-0 Monocryl suture Steri-Strips are applied. Patient thought procedure well and sent to recovery room in stable condition.
[2023-12-02] MEDS ORDERED: NALOXONE 0.4 MG/ML 1 ML VIAL IV PRN (08:47)
[2023-12-02] MEDS ORDERED: ACETAMINOPHEN TAB 325 MG TAB PO PRN (08:47)
[2023-12-02] MEDS ORDERED: HYDROmorphone 1 MG/ML 1 ML SYRINGE IVP PRN (08:47)
[2023-12-02] MEDS ORDERED: ONDANSETRON 4 MG/2 ML VIAL IVP PRN (08:47)
[2023-12-02] MEDS: IV FLUID CONTINUATION 1,000 ML IV ONE (08:50)
[2023-12-02] MEDS: HYDROmorphone 0.5 MG/0.5 ML SYRINGE IVP PRN (09:18)
[2023-12-02] MEDS: CITRIC ACID-SODIUM CITRATE 15 ML CUP PO ONE (09:48)
[2023-12-02] MEDS: ENOXAPARIN 30 MG/0.3 ML SYRINGE SQ SCH (13:58)
[2023-12-02] MEDS: KETOROLAC 15 MG/ML 1 ML VIAL IVP SCH (14:34)
[2023-12-02] MEDS ORDERED: IPRATROPIUM 0.5 MG/2.5 ML NEBU INHALATION PRN (16:23)
[2023-12-02] MEDS ORDERED: ALBUTEROL NEBULIZED 2.5 MG/3 ML INHALATION PRN (16:23)
[2023-12-02] MEDS: IPRATROPIUM-ALBUTEROL 3 ML NEB INHALATION SCH (18:29)
[2023-12-02] MEDS: FLUoxetine HCL 20 MG CAP PO SCH (20:08)
[2023-12-02] MEDS: hydroCHLOROthiazide 12.5 MG CAP PO SCH (20:08)
[2023-12-02] MEDS: ASPIRIN 81 MG PO SCH (20:09)
[2023-12-02] MEDS: PANTOPRAZOLE 40 MG TABLET PO SCH (20:09)
[2023-12-02] MEDS: LOSARTAN 50 MG TAB PO SCH (20:09)
--- NOTE | 2023-12-03 01:23 | CONS ---
CONSULTATION HISTORY OF PRESENT ILLNESS: Consultation from Dr. Early, status post gastric sleeve placed status post [place] surgery. He is for medical management. He has a history of COPD, anxiety, allergic rhinitis, depression, anxiety. Home medications have been reordered including Serevent 2 puffs b.i.d., BuSpar 5 mg b.i.d., losartan HCTZ 12.5 one daily, 25 mg, montelukast 10 mg daily, fluoxetine 20 mg daily, and Atrovent 17 mcg 2 puffs b.i.d. CONDITION: Stable. PROGNOSIS: Guarded. Ambulate, continue with current treatment status post surgery. PHYSICAL EXAMINATION: VITAL SIGNS: Stable. CARDIOVASCULAR: S1, S2. LUNGS: Transmitted upper sounds. HEMATOLOGY: Negative for Homans. PSYCH: Fair mood and affect. NEUROLOGIC: Alert and oriented x3. He normally wears oxygen at home at night for COPD. He does breathing treatments, probably the breathing treatment is postop at this point with DuoNeb. Continue current treatments. Prognosis guarded. MMODL / IJN: [id number] /
[2023-12-03] MEDS ORDERED: HYDROcodone/APAP 5-325MG 1 EACH TAB PO PRN (09:02)
[2023-12-03 11:01] VITALS: BMI 25.2
[2023-12-03] MEDS ORDERED: CALAMINE/ZINC OXIDE LOTION 177 ML BTL TOPICAL PRN (11:57)
--- NOTE | 2023-12-03 13:02 | P.DS ---
Providers Expected date of discharge: 12/03/23 Attending physician: Tacos Early Consults: 12/02/23 08:47 Consult Physician Routine Consulting Provider: Pavan Hassan Consult Reason/Comments: medical management Do you want consulting provider notified?: Already Contacted 12/02/23 18:10 Consult Physician Routine Consulting Provider: Mejia Mcgraw Consult Reason/Comments: arm rash Do you want consulting provider notified?: Yes Primary care physician: Pavan Hassan Hospital Course: Discharge diagnosis 1. Paraesophageal hiatal hernia status post laparoscopic Niesen fundoplication Hospital course This is a 73-year-old male with a known paraesophageal hiatal hernia. He is status post laparoscopic Niesen fundoplication. Patient is tolerating diet. Pain is controlled. He has been up and ambulating. He is having flatus. He is afebrile. He denies any difficulty urinating. He is stable for discharge. Please refer to chart for any further details. Physician Tennis Court Attendant note has been reviewed by physician. Signing provider agrees with the documented findings, assessment, and plan of care. Patient Condition at Discharge: Stable Plan - Discharge Summary Discharge Rx Participant: Yes New Discharge Prescriptions: New HYDROcodone/APAP 5-325MG [[place] 5-325] 1 tab PO Q6HR PRN 3 Days #12 tab PRN Reason: Pain Continue Naproxen Sodium [Aleve] 440 mg PO DAILY Aspirin EC [Ecotrin Low Dose] 81 mg PO HS Ipratropium [place] [Atrovent Hfa] 2 puff INHALATION RT-QID PRN PRN Reason: Shortness Of Breath Losartan/Hydrochlorothiazide [Losartan-Hctz 100-12.5 mg Tab] 1 tab PO HS FLUoxetine HCL 20 mg PO HS Esomeprazole Magnesium [NexIUM] 40 mg PO HS Allergy 160 mg PO HS Albuterol Sulfate(Unk. Dose) 1 dose INHALATION DAILY PRN PRN Reason: Shortness Of Breath Discharge Medication List Aspirin EC [Ecotrin Low Dose] 81 mg PO HS 06/29/22 [History] Esomeprazole Magnesium [NexIUM] 40 mg PO HS 06/29/22 [History] Ipratropium [place] [Atrovent Hfa] 2 puff INHALATION RT-QID PRN 06/29/22 [History] Naproxen Sodium [Aleve] 440 mg PO DAILY 06/29/22 [History] Albuterol Sulfate(Unk. Dose) 1 dose INHALATION DAILY PRN 11/28/23 [History] Allergy 160 mg PO HS 11/28/23 [History] FLUoxetine HCL 20 mg PO HS 11/28/23 [History] Losartan/Hydrochlorothiazide [Losartan-Hctz 100-12.5 mg Tab] 1 tab PO HS 11/28/23 [History] HYDROcodone/APAP 5-325MG [[place] 5-325] 1 tab PO Q6HR PRN 3 Days #12 tab 12/03/23 [Rx] Follow up Appointment(s)/Referral(s): Tacos Early MD [STAFF PHYSICIAN] - 1 Week Activity/Diet/Wound Care/Special Instructions: No driving while taking [place] No lifting over 10 pounds Shower daily. No soaking or tub baths for 2 weeks Very light activity until you are reevaluated at your follow up appointment with your surgeon Full liquid diet for the next 2 weeks Discharge Disposition: HOME SELF-CARE
[2023-12-03] MEDS: DEXAMETHASONE SOD PHOSPHATE 4 MG/ML 1 ML VIAL IVP SCH (13:53)
[2023-12-03 15:28] VITALS: BP 165/76; PULSE 58; RESP 17; TEMP 98.2
[2023-12-03] MEDS ORDERED: carvediloL 3.125 MG TAB PO SCH (17:30)
[2023-12-03] MEDS ORDERED: carvediloL 6.25 MG TAB PO SCH (17:30)
--- NOTE | 2023-12-03 22:35 | PN ---
PROGRESS NOTE SUBJECTIVE: This is a 73-year-old white male, status post [place], scattered rash on his extremities. Infectious disease thinks it is possibly reactive to his hydrochlorothiazide or losartan. We will discontinue that and will start him on Coreg 6.25 and send him home. Otherwise, he is stable. He is on home medicines, Nexium, fluoxetine, his breathing treatments, and his nighttime oxygen. Prognosis guarded. Continue current treatments. Follow up in next 24 to 48 hours. MMODL / IJN: [id number] /
== END 2023-12-03 15:20 | disposition home or self-care (01) ==
LOC: OR 05:57 → 4SSUR 08:42 → OR 12-03 15:20
PROVIDERS: ATTEND Surgery
DX: K44.9 Diaphragmatic hernia without obstruction or gangrene (principal); J44.9 Chronic obstructive pulmonary disease, unspecified; F41.9 Anxiety disorder, unspecified; F32.A Depression, unspecified; Z79.1 Long term (current) use of non-steroidal anti-inflammatories (NSAID); Z79.82 Long term (current) use of aspirin; Z79.899 Other long term (current) drug therapy
CPT/HCPCS: 94640 ×2; 86900; 86901; 86850; 43280; J2250; J0330; J1644; J1100 ×2; J2710; J2405; J0690 ×2; J0696 ×2; J3010; J1650; J1885 ×2; J2704; J1170; J2371

== ENCOUNTER 2023-12-04 11:19 | Emergency (ER) | payer MEDICARE ==
[2023-12-04 11:44] VITALS: TEMP 97.6
--- NOTE | 2023-12-04 12:29 | ED ---
Abdominal Pain HPI - General Chief Complaint: Abdominal Pain Stated Complaint: Post-op abd pain/vomiting Time Seen by Provider: 12/04/23 11:40 Source: patient, RN notes reviewed Mode of arrival: ambulatory Limitations: no limitations - History of Present Illness Initial Comments: This is a 73-year-old male department with a chief complaint of abdominal pain, nausea, and vomiting. Patient underwent a giulia fundoplication yesterday, 12/02, with Dr. Early, at [facility] and has a follow-up appointment scheduled on 12/10. Patient states that since yesterday he has been experiencing epigastric and mid abdominal that is worse with increasing intra-abdominal pressure. Patient states that he ate scrambled eggs this morning which he was able to keep down with no complaints. He states that he has been experiencing nausea and 'foamy vomit'. Patient is also concerned that he has not had a bowel movement in a few days, but does endorse some flatulence. He denies fevers, headaches, chest pain/pressure, dyspnea, dizziness, lightheadedness. Denies hematochezia, hememesis, dysuria, hematuria, dark and tarry stools. States he was prescribed norco after the surgery which he has not taken. - Related Data Home Medications Medication Instructions Recorded Confirmed Esomeprazole Magnesium [NexIUM] 40 mg PO DAILY 06/29/22 12/04/23 Ipratropium [place] [Atrovent Hfa] 1 puff INHALATION RT-QID PRN 06/29/2212/03 Fexofenadine HCl [[place] Allergy] 180 mg PO DAILY 12/04/23 12/04/23 Montelukast [Singulair] 10 mg PO DAILY 12/04/23 12/04/23 Salmeterol 50 mcg [Serevent Diskus] 1 puff INHALATION RT-BID 12/04/23 12/04/23 busPIRone HCL 5 mg PO BID 12/04/23 12/04/23 hydrOXYzine HCL [Atarax] 25 mg PO TID PRN 12/04/23 12/04/23 Previous Rx's Medication Instructions Recorded HYDROcodone/APAP 5-325MG [Stewart 1 tab PO Q6HR PRN 3 Days #12 tab 12/03/23 5-325] carvediloL [Coreg] 6.25 mg PO BID-W/MEALS 30 Days #60 12/03/23 tab Ondansetron Odt [Zofran Odt] 4 mg PO Q8HR PRN #10 tab 12/04/23 Allergies Allergy/AdvReac Type Severity Reaction Status Date / Time losartan Allergy Rash/Hives Verified 12/04/23 13:15 Review of Systems ROS Statement: Those systems with pertinent positive or pertinent negative responses have been documented in the HPI. ROS Other: All systems not noted in ROS Statement are negative. 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 "They tested my kidneys a couple of weeks ago and my level is down."- November 2023. "They thought I had a blood clot at one time in my leg." "I've had a rash on my arms, legs, and chest off and on since Apr." Uses 02 @ night 2L N/C. Per hospital record Jun 2022- Dx GI bleed, with 2 syncopal episodes at home, before arriving to ER via EMS. Hx of Pernicious anemia-per pt's he was dx 5 years ago with this and dx with A-fib at the same time. History of Any Multi-Drug Resistant Organisms: None Reported Past Surgical History: Hernia Repair Additional Past Surgical History / Comment(s): Inguinal hernia repair lt side. rt eye cataract removal, lt eye lense implant. Additional Past Anesthesia/Blood Transfusion Reaction / Comment(s): "I have a hard time waking up after surgery." Past Psychological History: Depression, PTSD Smoking Status: Former smoker Past Alcohol Use History: None Reported Past Drug Use History: None Reported - Past Family History Father Family Medical History: Cancer General Exam Limitations: no limitations General appearance: alert, in no apparent distress Head exam: Present: atraumatic, normocephalic, normal inspection Eye exam: Present: normal appearance, PERRL, EOMI. Absent: scleral icterus, conjunctival injection, periorbital swelling ENT exam: Present: normal exam, mucous membranes moist Neck exam: Present: normal inspection. Absent: tenderness, meningismus, lymphadenopathy Respiratory exam: Present: normal lung sounds bilaterally. Absent: respiratory distress, wheezes, rales, rhonchi, stridor Cardiovascular Exam: Present: regular rate, normal rhythm, normal heart sounds. Absent: systolic murmur, diastolic murmur, rubs, gallop, clicks GI/Abdominal exam: Present: soft, distended, tenderness (mild tenderness over the epigastric), normal bowel sounds, other (5 post laproscopic incisions noted, no signs of dehisence or erythema or drainage). Absent: guarding, rebound, rigid Extremities exam: Present: normal inspection, full ROM, normal capillary refill. Absent: tenderness, pedal edema, joint swelling, calf tenderness Back exam: Present: normal inspection Neurological exam: Present: alert, oriented X3, CN II-XII intact Psychiatric exam: Present: normal affect, normal mood Skin exam: Present: warm, dry, intact, normal color. Absent: rash Course Vital Signs 12/04/23 12/04/23 11:37 15:10 Temperature 97.6 F Pulse Rate 73 80 Respiratory 18 16 Rate Blood Pressure 158/67 140/74 O2 Sat by Pulse 96 92 L Oximetry Medical Decision Making - Medical Decision Making Was pt. sent in by a medical professional or institution (Dr. PA, INSTRUCTOR ADJUNCT SURGICAL TECHNICIAN, urgent care, hospital, or fdc...) When possible be specific @ -No Did you speak to anyone other than the patient for history (EMS, parent, family, police, friend...)? What history was obtained from this source @ -No Did you review nursing and triage notes (agree or disagree)? Why? @ -I reviewed and agree with nursing and triage notes Were old charts reviewed (outside hosp., previous admission, EMS record, old EKG, old radiological studies, urgent care reports/EKG's, fdc records)? Report findings @ -No old charts were reviewed Differential Diagnosis (chest pain, altered mental status, abdominal pain women, abdominal pain men, vaginal bleeding, weakness, fever, dyspnea, syncope, headache, dizziness, GI bleed, back pain, seizure, CVA, palpatations, mental health, musculoskeletal)? @ -Differential Abdominal Pain Men: Appendicitis, cholecystitis, diverticulosis, ischemic bowel, pancreatitis, hepatitis, UTI, gastroenteritis, AAA, incarcerated hernia, bowel obstruction, constipation, inflammatory bowel, hepatitis, peptic ulcer disease, splenic infarction, perforated viscus, testicular torsion, this is not meant to be an all-inclusive list EKG interpreted by me (3pts min.). @ -None X-rays interpreted by me (1pt min.). @ -X-ray KUB nonobstructive bowel gas pattern with gas and fecal matter seen in the colon that is non-distended. chest x-ray reveals patient states the wound bases possibly reflecting mild atelectasis with tiny effusions and prominence of the pulmonary vasculature possible atypical congestive failure in COPD CT interpreted by me (1pt min.). @ -None done U/S interpreted by me (1pt. min.). @ -None done What testing was considered but not performed or refused? (CT, X-rays, U/S, labs)? Why? @ -None What meds were considered but not given or refused? Why? @ -None Did you discuss the management of the patient with other professionals (professionals i.e. , PA, INSTRUCTOR ADJUNCT SURGICAL TECHNICIAN, lab, RT, psych nurse, criminal justice social worker, cement tester assistant, teacher, ground intelligence officer, nurse case management)? Give summary @ -No Was smoking cessation discussed for >3mins.? @ -No Was critical care preformed (if so, how long)? @ -No Were there social determinants of health that impacted care today? How? (Homelessness, low income, unemployed, alcoholism, drug addiction, transportation, low edu. Level, literacy, decrease access to med. care, care home, rehab)? @ -No Was there de-escalation of care discussed even if they declined (Discuss DNR or withdrawal of care, Hospice)? DNR status @ -No What co-morbidities impacted this encounter? (DM, HTN, Smoking, COPD, CAD, Cancer, CVA, ARF, Chemo, Hep., AIDS, mental health diagnosis, sleep apnea, morbid obesity)? @ -smoking, PTSD Was patient admitted / discharged? Hospital course, mention meds given and route, prescriptions, significant lab abnormalities, going to OR and other pertinent info. @ -73-year-old male with complaint of abdominal pain, nausea and vomiting. On physical exam patient noted to have surgical incisions, 5, on his abdomen that are healing well with no concerns for dehiscence. Abdominal examination with no rigidity noted. Cardiopulmonary examination unremarkable. At this time basic labs ordered addition to chest x-ray and abdominal x-ray. Patient also given IV push of Zofran in addition to a GI cocktail to aid in symptoms. On reevaluation, patient states that he feels better than he has over the last few days after medications. Patient CMP markable for 112, kidney and liver function within normal limits. Patient is stable for discharge home. Lengthy discussion at bedside with patient recommend continuation of strict liquid diet at this time, patient provided with instructions for liquid diet. Recommend that he continue to keep his follow-up appointment on December 10 for further evaluation. Strict return parameters discussed with the patient. Will prescribe Zofran at home as needed over the next few days for associated nausea. Patient's chest x-ray is nonconcerning for acute pulmonary process at this time as compared to previous imaging. Undiagnosed new problem with uncertain prognosis? @ -No Drug Therapy requiring intensive monitoring for toxicity (Heparin, Nitro, Insulin, Cardizem)? @ -No Were any procedures done? @ -No Diagnosis/symptom? @ -abdominal pain, nausea, vomiting, post surgical giulia fundoplication Acute, or Chronic, or Acute on Chronic? @ -acute Uncomplicated (without systemic symptoms) or Complicated (systemic symptoms)? @ -uncomplicated Side effects of treatment? @ -No Exacerbation, Progression, or Severe Exacerbation? @ -No Poses a threat to life or bodily function? How? (Chest pain, USA, MD, pneumonia, PE, COPD, DKA, ARF, appy, cholecystitis, CVA, Diverticulitis, Homicidal, Suicidal, threat to staff... and all critical care pts) @ -No - Lab Data Result diagrams: 12/04/23 14:21 12/04/23 13:34 Lab Results 12/04/23 12/04/23 Range/Units 13:34 14:21 WBC 8.3 (3.8-10.6) k/uL RBC 4.09 L (4.30-5.90) m/uL Hgb 8.3 L D (13.0-17.5) gm/dL Hct 28.0 L (39.0-53.0) % MCV 68.4 L (80.0-100.0) fL MCH 20.4 L (25.0-35.0) pg MCHC 29.8 L (31.0-37.0) g/dL RDW 19.2 H (11.5-15.5) % Plt Count 219 (150-450) k/uL MPV 7.7 Neutrophils % 65 % Lymphocytes % 19 % Monocytes % 9 % Eosinophils % 2 % Basophils % 1 % Neutrophils # 5.4 (1.3-7.7) k/uL Lymphocytes # 1.6 (1.0-4.8) k/uL Monocytes # 0.8 (0-1.0) k/uL Eosinophils # 0.2 (0-0.7) k/uL Basophils # 0.1 (0-0.2) k/uL Hypochromasia Marked Poikilocytosis Slight Anisocytosis Slight Microcytosis Marked Sodium 140 (137-145) mmol/L Potassium 4.0 (3.5-5.1) mmol/L Chloride 112 H (98-107) mmol/L Carbon Dioxide 21 L (22-30) mmol/L Anion Gap 7 mmol/L BUN 22 H (9-20) mg/dL Creatinine 1.06 (0.66-1.25) mg/dL Est GFR (CKD-EPI)AfAm 81 (>60 ml/min/1.73 sqM) Est GFR (CKD-EPI)NonAf 70 (>60 ml/min/1.73 sqM) Glucose 102 H (74-99) mg/dL Calcium 8.7 (8.4-10.2) mg/dL Total Bilirubin 0.6 (0.2-1.3) mg/dL AST 42 (17-59) U/L ALT 35 (4-49) U/L Alkaline Phosphatase 66 (38-126) U/L Total Protein 6.0 L (6.3-8.2) g/dL Albumin 3.0 L (3.5-5.0) g/dL Disposition Clinical Impression: Postoperative abdominal pain, History of Giulia fundoplication, Nausea & vomiting Narrative: Please return to the Emergency Department if symptoms worsen or any other concerns. Follow-up as scheduled on December [address] Early. Disposition: HOME SELF-CARE Instructions (If sedation given, give patient instructions): Full Liquid Diet (DC), Fundoplication in Adults (DC) Prescriptions: Ondansetron Odt [Zofran Odt] 4 mg PO Q8HR PRN #10 tab PRN Reason: Nausea Is patient prescribed a controlled substance at d/c from ED?: No Referrals: Pavan Hassan MD [Primary Care Provider] - 1-2 days Time of Disposition: 14:52
--- NOTE | 2023-12-04 13:14 | XR ---
EXAMINATION TYPE: XR chest 2V DATE OF EXAM: 12/04/2023 COMPARISON: 10/09/2023 HISTORY: Shortness of breath TECHNIQUE: Frontal and lateral views of the chest are obtained. FINDINGS: Scattered senescent parenchymal changes noted. Hyperinflation compatible with COPD. Increased density at the lung bases could reflect mild atelectasis with tiny effusions. Prominence of the pulmonary vasculature could reflect atypical congestive failure in a patient with COPD. Heart size is stable. Mediastinal structures are stable and grossly unremarkable. No evidence for hilar prominence. Degenerative changes dorsal spine. IMPRESSION: 1. Increased density at the lung bases could reflect mild atelectasis with tiny effusions. Prominence of the pulmonary vasculature could reflect atypical congestive failure in a patient with COPD.
--- NOTE | 2023-12-04 13:15 | XR ---
EXAMINATION TYPE: XR KUB DATE OF EXAM: 12/04/2023 COMPARISON: NONE HISTORY: Pain TECHNIQUE: Single supine KUB image of the abdomen is obtained FINDINGS: Small bowel demonstrates no evidence for dilatation or air fluid levels. Gas and fecal material is seen in non-distended colon. No convincing evidence for pneumoperitoneum. No unusual calcifications. The lung bases are clear. The osseous structures are intact. IMPRESSION: 1. Overall nonobstructive bowel gas pattern.
[2023-12-04] MEDS: MAG HYDROX/AL HYDROX/SIMETH 30 ML, HYOSCYAMINE ELIXIR 10 ML, LIDOCAINE VISCOUS 2% 10 ML PO STA (13:34)
[2023-12-04] MEDS: ONDANSETRON 4 MG/2 ML VIAL IVP STA (13:41)
[2023-12-04 13:59] LABS: ALT 35 U/L (4-49); AST 42 U/L (17-59); African American GFR (CKD) 81 (>60 ml/min/1.73 sqM); Alkaline Phosphatase 66 U/L (38-126); Anion Gap 7 mmol/L; Blood Urea Nitrogen 22 mg/dL (9-20); Calcium 8.7 mg/dL (8.4-10.2); Carbon Dioxide 21 mmol/L (22-30); Chloride 112 mmol/L (98-107); Glucose 102 mg/dL (74-99); Non-African American GFR(CKD) 70 (>60 ml/min/1.73 sqM); Sodium 140 mmol/L (137-145); Total Bilirubin 0.6 mg/dL (0.2-1.3)
[2023-12-04 14:34] LABS: Anisocytosis Slight; Basophils # (A) 0.1 k/uL (0-0.2); Basophils % (A) 1 %; Eosinophils # (A) 0.2 k/uL (0-0.7); Eosinophils % (A) 2 %; HGB 8.3 gm/dL (13.0-17.5); Hypochromasia Marked; Lymphocytes # (A) 1.6 k/uL (1.0-4.8); Lymphocytes % (A) 19 %; MCH 20.4 pg (25.0-35.0); MCHC 29.8 g/dL (31.0-37.0); MCV 68.4 fL (80.0-100.0); Mean Platelet Volume 7.7; Microcytosis Marked; Monocytes # (A) 0.8 k/uL (0-1.0); Monocytes % (A) 9 %; Neutrophils # (A) 5.4 k/uL (1.3-7.7); Neutrophils % (A) 65 %; Platelet Count 219 k/uL (150-450); Poikilocytosis Slight; RBC 4.09 m/uL (4.30-5.90); RDW 19.2 % (11.5-15.5); WBC 8.3 k/uL (3.8-10.6)
[2023-12-04 15:30] VITALS: BP 140/74; PULSE 80; RESP 16
== END 2023-12-04 15:12 | disposition home or self-care (01) ==
LOC: EC 11:19
DX: G89.18 Other acute postprocedural pain (principal); R10.9 Unspecified abdominal pain; R11.2 Nausea with vomiting, unspecified; Z87.891 Personal history of nicotine dependence; Z88.8 Allergy status to other drugs, medicaments and biological substances
CPT/HCPCS: 99284; 96374; 36415; 80053; 85025; 71046; 74018; J2405

== ENCOUNTER 2023-12-07 23:00 | Inpatient (IN) | payer MEDICARE ==
--- NOTE | 2023-12-07 23:43 | ED ---
Recheck HPI - General Chief Complaint: Recheck/Abnormal Lab/Rx Stated Complaint: post op Time Seen by Provider: 12/07/23 23:06 Source: patient, family, RN notes reviewed Mode of arrival: ambulatory Limitations: no limitations - History of Present Illness Initial Comments: 73-year-old male presenting to the ER with a chief complaint of vomiting. Patient reports he had a Opal procedure performed by Dr. Early on 12-02-2023. He states since then he has not been able to keep food or water down as he vomits it back up. He was able to keep down hot tea the day after the procedure but has not been able to since. He states he was recently seen here on 12-04-2023 for similar complaints and was discharged home. He also reports he has been constipated. He is not taking any Sims's that were prescribed. Denies fevers, chills. He is reporting epigastric abdominal discomfort. Patient also reports he uses 2 L nasal cannula oxygen at bedtime. He states today he was having shortness of breath and was wearing it throughout the day. He does state his shortness of breath is worse with exertion and radiates to his back. He does have a history of blood clots not currently on a blood thinner. - Related Data Home Medications Medication Instructions Recorded Confirmed Esomeprazole Magnesium [NexIUM] 40 mg PO DAILY 06/29/22 12/04/23 Ipratropium [place] [Atrovent Hfa] 1 puff INHALATION RT-QID PRN 06/29/2211/10 Fexofenadine HCl [[place] Allergy] 180 mg PO DAILY 12/04/23 12/04/23 Montelukast [Singulair] 10 mg PO DAILY 12/04/23 12/04/23 Salmeterol 50 mcg [Serevent Diskus] 1 puff INHALATION RT-BID 12/04/23 12/04/23 busPIRone HCL 5 mg PO BID 12/04/23 12/04/23 hydrOXYzine HCL [Atarax] 25 mg PO TID PRN 12/04/23 12/04/23 Previous Rx's Medication Instructions Recorded HYDROcodone/APAP 5-325MG [Sims 1 tab PO Q6HR PRN 3 Days #12 tab 12/03/23 5-325] carvediloL [Coreg] 6.25 mg PO BID-W/MEALS 30 Days #60 12/03/23 tab Ondansetron Odt [Zofran Odt] 4 mg PO Q8HR PRN #10 tab 12/04/23 Allergies Allergy/AdvReac Type Severity Reaction Status Date / Time losartan Allergy Rash/Hives Verified 12/04/23 13:15 Review of Systems ROS Statement: Those systems with pertinent positive or pertinent negative responses have been documented in the HPI. ROS Other: All systems not noted in ROS Statement are negative. 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 "They tested my kidneys a couple of weeks ago and my level is down."- November 2023. "They thought I had a blood clot at one time in my leg." "I've had a rash on my arms, legs, and chest off and on since Apr." Uses 02 @ night 2L N/C. Per hospital record Jun 2022- Dx GI bleed, with 2 syncopal episodes at home, before arriving to ER via EMS. Hx of Pernicious anemia-per pt's he was dx 5 years ago with this and dx with A-fib at the same time. History of Any Multi-Drug Resistant Organisms: None Reported Past Surgical History: Hernia Repair Additional Past Surgical History / Comment(s): Inguinal hernia repair lt side. rt eye cataract removal, lt eye lense implant. Additional Past Anesthesia/Blood Transfusion Reaction / Comment(s): "I have a hard time waking up after surgery." Past Psychological History: Depression, PTSD Smoking Status: Former smoker Past Alcohol Use History: None Reported Past Drug Use History: None Reported - Past Family History Father Family Medical History: Cancer General Exam General appearance: alert, in no apparent distress Head exam: Present: atraumatic, normocephalic, normal inspection Eye exam: Present: normal appearance, PERRL, EOMI. Absent: scleral icterus, conjunctival injection, periorbital swelling Respiratory exam: Present: normal lung sounds bilaterally. Absent: respiratory distress, wheezes, rales, rhonchi, stridor Cardiovascular Exam: Present: regular rate, normal rhythm, normal heart sounds. Absent: systolic murmur, diastolic murmur, rubs, gallop, clicks GI/Abdominal exam: Present: soft, tenderness (mild epigastric), normal bowel sounds, other (5 surgical incisions along abdomen. No evidence of infection) Neurological exam: Present: alert, oriented X3, CN II-XII intact Skin exam: Present: warm, dry, intact, normal color. Absent: rash Course Vital Signs 12/07/23 23:01 Temperature 97.3 F L Pulse Rate 59 L Respiratory 18 Rate Blood Pressure 143/69 O2 Sat by Pulse 96 Oximetry - Reevaluation(s) Reevaluation #1: 12/08/23 03:[address] Early, advises on admission. Medical Decision Making - Medical Decision Making Was pt. sent in by a medical professional or institution (, PA, HAIR MACHINE OPERATOR, urgent care, hospital, or halfway...) When possible be specific @ -No Did you speak to anyone other than the patient for history (EMS, parent, family, police, friend...)? What history was obtained from this source @ -[ aiding in HPI and past medical history. Did you review nursing and triage notes (agree or disagree)? Why? @ -I reviewed and agree with nursing and triage notes Were old charts reviewed (outside hosp., previous admission, EMS record, old EKG, old radiological studies, urgent care reports/EKG's, halfway records)? Report findings @ -[Yes ER visit from 12-04-2023. Patient seen for similar complaint and discharged with follow-up to Dr. Early. Differential Diagnosis (chest pain, altered mental status, abdominal pain women, abdominal pain men, vaginal bleeding, weakness, fever, dyspnea, syncope, headache, dizziness, GI bleed, back pain, seizure, CVA, palpatations, mental health, musculoskeletal)? @ -Differential Abdominal Pain Men:Appendicitis, cholecystitis, diverticulosis, ischemic bowel, pancreatitis, hepatitis, UTI, gastroenteritis, AAA, incarcerated hernia, bowel obstruction, constipation, inflammatory bowel, hepatitis, peptic ulcer disease, splenic infarction, perforated viscus, testicular torsion, this is not meant to be an all-inclusive list EKG interpreted by me (3pts min.). @ -[As above X-rays interpreted by me (1pt min.). @ -None done CT interpreted by me (1pt min.). @ -CT chest rule out PE negative for acute pulmonary embolism. CT abdomen pelvis with contrast significant for postoperative changes with apparent hiatal hernia repair. There is a dilated intrathoracic esophagus with narrowing at the cost esophageal junction suggesting a partial obstruction at the surgical site. Fatty liver. Focal gallbladder fundal wall thickening and enhancement. U/S interpreted by me (1pt. min.). @ -None done What testing was considered but not performed or refused? (CT, X-rays, U/S, labs)? Why? @ -None What meds were considered but not given or refused? Why? @ -None Did you discuss the management of the patient with other professionals (professionals i.e. , PA, HAIR MACHINE OPERATOR, lab, RT, psych nurse, executive secretary social welfare, unit controller, teacher, air support control officer, ed case manager)? Give summary @ -Yes, case discussed with Dr. Early who advises on admission. Was smoking cessation discussed for >3mins.? @ -No Was critical care preformed (if so, how long)? @ -No Were there social determinants of health that impacted care today? How? (Homelessness, low income, unemployed, alcoholism, drug addiction, transportation, low edu. Level, literacy, decrease access to med. care, residential, rehab)? @ -No Was there de-escalation of care discussed even if they declined (Discuss DNR or withdrawal of care, Hospice)? DNR status @ -No What co-morbidities impacted this encounter? (DM, HTN, Smoking, COPD, CAD, Ca ncer, CVA, ARF, Chemo, Hep., AIDS, mental health diagnosis, sleep apnea, morbid obesity)? @ -None Was patient admitted / discharged? Hospital course, mention meds given and route, prescriptions, significant lab abnormalities, going to OR and other pertinent info. @ -Admitted. 73-year-old male presenting to the ER with a chief complaint of nausea and vomiting. History and physical exam completed. Vitals stable. Patient no signs of acute distress and nontoxic-appearing. Multiple surgical in cisions on abdomen no evidence of infections or dehiscence. Mild epigastric abdominal pain to palpation. Normal bowel sounds. Labs obtained significant for hemoglobin 9.6 (8.3 on 12-04-2023) chemistry significant for chloride 112, carbon dioxide 15. CT abdomen pelvis showing concern of partial obstruction of surgical site. Patient received symptomatic treatment in ER with improvement of nausea and vomiting. Case discussed with Dr. Early who advised on admission. Results discussed with patient, all questions answered. Patient agreeable for admission. Case discussed with ED attending, Dr. Solis. Undiagnosed new problem with uncertain prognosis? @ -No Drug Therapy requiring intensive monitoring for toxicity (Heparin, Nitro, Insulin, Cardizem)? @ -No Were any procedures done? @ -No Diagnosis/symptom? @ -Partial obstruction of esophagus Acute, or Chronic, or Acute on Chronic? @ -Acute Uncomplicated (without systemic symptoms) or Complicated (systemic symptoms)? @ -Complicated Side effects of treatment? @ -No Exacerbation, Progression, or Severe Exacerbation? @ -No Poses a threat to life or bodily function? How? (Chest pain, USA, PA, pneumonia, PE, COPD, DKA, ARF, appy, cholecystitis, CVA, Diverticulitis, Homicidal, Suicidal, threat to staff... and all critical care pts) @ -No - Lab Data Result diagrams: 12/08/23 01:39 12/08/23 01:39 Lab Results 12/08/23 12/08/23 12/08/23 Range/Units 00:48 00:48 01:39 WBC 8.6 (3.8-10.6) k/uL RBC 4.86 (4.30-5.90) m/uL Hgb 9.6 L (13.0-17.5) gm/dL Hct 32.9 L (39.0-53.0) % MCV 67.7 L (80.0-100.0) fL MCH 19.8 L (25.0-35.0) pg MCHC 29.2 L (31.0-37.0) g/dL RDW 18.9 H (11.5-15.5) % Plt Count 267 (150-450) k/uL MPV 7.3 Neutrophils % 70 % Lymphocytes % 13 % Monocytes % 7 % Eosinophils % 6 % Basophils % 1 % Neutrophils # 6.0 (1.3-7.7) k/uL Lymphocytes # 1.1 (1.0-4.8) k/uL Monocytes # 0.6 (0-1.0) k/uL Eosinophils # 0.5 (0-0.7) k/uL Basophils # 0.0 (0-0.2) k/uL Hypochromasia Marked Poikilocytosis Slight Anisocytosis Slight Microcytosis Marked PT (10.0-12.5) sec INR (<1.2) APTT (22.0-30.0) sec Sodium (137-145) mmol/L Potassium (3.5-5.1) mmol/L Chloride (98-107) mmol/L Carbon Dioxide (22-30) mmol/L Anion Gap mmol/L BUN (9-20) mg/dL Creatinine (0.66-1.25) mg/dL Est GFR (CKD-EPI)AfAm (>60 ml/min/1.73 sqM) Est GFR (CKD-EPI)NonAf (>60 ml/min/1.73 sqM) Glucose (74-99) mg/dL Plasma Lactic Acid Dayday 1.6 (0.7-2.0) mmol/L Calcium (8.4-10.2) mg/dL Total Bilirubin (0.2-1.3) mg/dL AST (17-59) U/L ALT (4-49) U/L Alkaline Phosphatase (38-126) U/L Troponin I <0.012 (0.000-0.034) ng/mL Total Protein (6.3-8.2) g/dL Albumin (3.5-5.0) g/dL Amylase (30-110) U/L Lipase (23-300) U/L 12/08/23 12/08/23 Range/Units 01:39 02:52 WBC (3.8-10.6) k/uL RBC (4.30-5.90) m/uL Hgb (13.0-17.5) gm/dL Hct (39.0-53.0) % MCV (80.0-100.0) fL MCH (25.0-35.0) pg MCHC (31.0-37.0) g/dL RDW (11.5-15.5) % Plt Count (150-450) k/uL MPV Neutrophils % % Lymphocytes % % Monocytes % % Eosinophils % % Basophils % % Neutrophils # (1.3-7.7) k/uL Lymphocytes # (1.0-4.8) k/uL Monocytes # (0-1.0) k/uL Eosinophils # (0-0.7) k/uL Basophils # (0-0.2) k/uL Hypochromasia Poikilocytosis Anisocytosis Microcytosis PT 11.0 (10.0-12.5) sec INR 1.0 (<1.2) APTT 18.8 L (22.0-30.0) sec Sodium 139 (137-145) mmol/L Potassium 3.8 (3.5-5.1) mmol/L Chloride 112 H (98-107) mmol/L Carbon Dioxide 15 L (22-30) mmol/L Anion Gap 12 mmol/L BUN 21 H (9-20) mg/dL Creatinine 0.93 (0.66-1.25) mg/dL Est GFR (CKD-EPI)AfAm >90 (>60 ml/min/1.73 sqM) Est GFR (CKD-EPI)NonAf 81 (>60 ml/min/1.73 sqM) Glucose 79 (74-99) mg/dL Plasma Lactic Acid Dayday (0.7-2.0) mmol/L Calcium 8.3 L (8.4-10.2) mg/dL Total Bilirubin 1.0 (0.2-1.3) mg/dL AST 33 (17-59) U/L ALT 30 (4-49) U/L Alkaline Phosphatase 74 (38-126) U/L Troponin I (0.000-0.034) ng/mL Total Protein 6.4 (6.3-8.2) g/dL Albumin 3.3 L (3.5-5.0) g/dL Amylase 52 (30-110) U/L Lipase 106 (23-300) U/L - EKG Data -: EKG Interpreted by Me EKG Comments: EKG taken at 2336 significant for sinus rhythm with no acute ST segment or T wave abnormalities. Ventricular rate 60, IA interval 176, QRS duration 92, QT/QTc 432/433. - Radiology Data Radiology results: report reviewed, image reviewed Disposition Clinical Impression: History of Opal fundoplication, Nausea & vomiting, Postoperative complication Disposition: ADMITTED IP TO THIS HOSP Condition: Stable Referrals: Pavan Hassan MD [Primary Care Provider] - 1-2 days Time of Disposition: 03:38
[2023-12-08] MEDS: ONDANSETRON 4 MG/2 ML VIAL IVP STA (00:47)
[2023-12-08] MEDS: SODIUM CHLORIDE 0.9% 1,000 ML IV STA (00:48)
[2023-12-08 02:00] LABS: Anisocytosis Slight; Basophils % (A) 1 %; Eosinophils # (A) 0.5 k/uL (0-0.7); Eosinophils % (A) 6 %; HCT 32.9 % (39.0-53.0); HGB 9.6 gm/dL (13.0-17.5); Hypochromasia Marked; Lymphocytes # (A) 1.1 k/uL (1.0-4.8); Lymphocytes % (A) 13 %; MCH 19.8 pg (25.0-35.0); MCHC 29.2 g/dL (31.0-37.0); MCV 67.7 fL (80.0-100.0); Mean Platelet Volume 7.3; Microcytosis Marked; Monocytes # (A) 0.6 k/uL (0-1.0); Monocytes % (A) 7 %; Neutrophils % (A) 70 %; Platelet Count 267 k/uL (150-450); Poikilocytosis Slight; RBC 4.86 m/uL (4.30-5.90); RDW 18.9 % (11.5-15.5); WBC 8.6 k/uL (3.8-10.6)
[2023-12-08 02:11] LABS: ALT 30 U/L (4-49); AST 33 U/L (17-59); African American GFR (CKD) >90 (>60 ml/min/1.73 sqM); Albumin 3.3 g/dL (3.5-5.0); Alkaline Phosphatase 74 U/L (38-126); Amylase 52 U/L (30-110); Anion Gap 12 mmol/L; Blood Urea Nitrogen 21 mg/dL (9-20); Calcium 8.3 mg/dL (8.4-10.2); Carbon Dioxide 15 mmol/L (22-30); Chloride 112 mmol/L (98-107); Glucose 79 mg/dL (74-99); Lipase 106 U/L (23-300); Non-African American GFR(CKD) 81 (>60 ml/min/1.73 sqM); Potassium 3.8 mmol/L (3.5-5.1); Sodium 139 mmol/L (137-145); Total Protein 6.4 g/dL (6.3-8.2)
--- NOTE | 2023-12-08 02:22 | CT ---
EXAM: CT Angiography Chest With Intravenous Contrast CLINICAL HISTORY: SOB hx PE TECHNIQUE: Axial computed tomographic angiography images of the chest with intravenous contrast. CTDI is 13.3 mGy and DLP is 333 mGy-cm. This CT exam was performed using one or more of the following dose reduction techniques: automated exposure control, adjustment of the mA and/or kV according to patient size, and/or use of iterative reconstruction technique. 3D and MIP reconstructed images were created and reviewed. COMPARISON: Noncontrast CT chest 10/27/2023. FINDINGS: Pulmonary arteries: No pulmonary embolism. Aorta: No thoracic aortic aneurysm or dissection. Lungs: Redemonstrated severe diffuse bullous emphysema most severe at the lung apices. Apical pleural-parenchymal scarring. No focal pneumonia. Pleural space: Small bilateral pleural effusions. No pneumothorax. Heart: No cardiomegaly. No pericardial effusion. No evidence of RV dysfunction. Coronary artery calcifications. Mediastinum: Diffusely dilated esophagus with the air-fluid level and debris to the gastroesophageal junction with narrowing. Apparent surgical clips at the gas esophageal junction. Previously demonstrated hiatal hernia is not visualized. Bones/joints: No acute fracture. Soft tissues: Unremarkable. Lymph nodes: Unremarkable. No enlarged lymph nodes. IMPRESSION: No pulmonary embolism. Severe emphysematous changes. Biapical scarring. Diffusely dilated esophagus with fluid and debris. Narrowing at the gastroesophageal junction. Obesity demonstrated hiatal hernia is not identified with surgical clips thick axial junction with narrowing suggesting interval surgery with likely stenosis/obstruction at the gastroesophageal junction. Small bilateral pleural effusions.
--- NOTE | 2023-12-08 02:38 | CT ---
EXAM: CT Abdomen and Pelvis With Intravenous Contrast CLINICAL HISTORY: Abdominal pain TECHNIQUE: Axial computed tomography images of the abdomen and pelvis with intravenous contrast. CTDI is 18.2 mGy and DLP is 820.1 mGy-cm. This CT exam was performed using one or more of the following dose reduction techniques: automated exposure control, adjustment of the mA and/or kV according to patient size, and/or use of iterative reconstruction technique. COMPARISON: 06/29/2022. FINDINGS: Lung bases: Posterior layering pleural effusions with minimal atelectasis. Emphysematous changes. ABDOMEN: Liver: Mildly hypodense/fatty. Scattered subcentimeter probable liver cysts in the left lobe. Gallbladder and bile ducts: Mild thickening and enhancement at the gallbladder fundus. No calcified stones. No ductal dilation. Pancreas: Unremarkable. No mass. No ductal dilation. Spleen: Unremarkable. No splenomegaly. Adrenals: Unremarkable. No mass. Kidneys and ureters: Unremarkable. No solid mass. No hydronephrosis. Stomach and bowel: Dilated distal thoracic esophagus. Previously demonstrated hiatal hernia is no longer present with surgical clips present consistent with interval surgery. There is narrowing at the gastroesophageal junction suggesting partial obstruction. No bowel obstruction or ileus. Few scattered colonic diverticuli without evidence for diverticulitis. PELVIS: Appendix: No findings to suggest acute appendicitis. Bladder: Partially contracted with nonspecific wall thickening. No mass. Reproductive: Unremarkable as visualized. ABDOMEN and PELVIS: Intraperitoneal space: No free air. No free fluid. Bones/joints: No acute fracture. Degenerative changes of the spine. Soft tissues: Unremarkable. Vasculature: Atherosclerotic vascular calcifications. No abdominal aortic aneurysm. Lymph nodes: Unremarkable. No enlarged lymph nodes. IMPRESSION: Postoperative changes with apparent hiatal hernia repair. Dilated intrathoracic esophagus with narrowing at the cost esophageal junction suggesting a partial obstruction at the surgical site. Fatty liver. Focal gallbladder fundal wall thickening and enhancement. Gallbladder was collapsed on the prior study. Correlation with ultrasound is recommended when clinically appropriate. Partially contracted urinary bladder with nonspecific wall thickening.
[2023-12-08] MEDS ORDERED: NALOXONE 0.4 MG/ML 1 ML VIAL IV PRN (03:12)
[2023-12-08] MEDS ORDERED: HYDROmorphone 0.5 MG/0.5 ML SYRINGE IVP PRN (03:12)
[2023-12-08] MEDS: SODIUM CHLORIDE 0.9% 1,000 ML IV SCH (03:37)
[2023-12-08 03:53] LABS: Appearance,Urine Clear (Clear); Bilirubin,Urine Negative (Negative); Blood,Urine Negative (Negative); Color,Urine Colorless; Glucose,Urine (UA) Negative (Negative); Ketones,Urine 1+ (Negative); Leukocyte Esterase,Urine Negative (Negative); Nitrite,Urine Negative (Negative); Protein,Urine Negative (Negative)
[2023-12-08 03:59] LABS: Partial Thromboplastin Time 18.8 sec (22.0-30.0)
[2023-12-08 04:30] LABS: Specific Gravity,Urine >1.050 (1.001-1.035)
[2023-12-08] MEDS: ONDANSETRON 4 MG/2 ML VIAL IVP PRN (05:06)
[2023-12-08] MEDS: IBUPROFEN 400 MG TAB PO PRN (08:24)
--- NOTE | 2023-12-08 11:50 | P.GSCN ---
History of Present Illness Consult date: 12/08/23 History of present illness: CHIEF COMPLAINT: Nausea and vomiting HISTORY OF PRESENT ILLNESS: This is a 73-year-old male who presented to the hospital with complaints of nausea and vomiting since his Niesen fundoplication on 12/02/2023. Patient reports initially he was able to tolerate warm or hot liquids. But now he cannot even tolerate the warm liquids. He reports no matter what he tries to take and it comes right back up. He does complain of some esophageal pain. CT scan abdomen and pelvis had reported dilated intrathoracic esophagus with narrowing at the esophageal junction suggesting a partial obstruction at the surgical site. Patient admitted to surgical service. PAST MEDICAL HISTORY: Atrial Fibrillation, Blood Disorder, Heart Failure, COPD, CVA/TIA, Deep Vein Thrombosis (DVT), GERD/Reflux, GI Bleed, Hypertension, Osteoarthritis (OA), Skin Disorder, Sleep Apnea/CPAP/BIPAP, Syncope, pernicious anemia PAST SURGICAL HISTORY: Hiatal hernia repair, inguinal hernia repair MEDICATIONS: See below ALLERGIES: See below SOCIAL HISTORY: No illicit drug use. REVIEW OF SYSTEMS: CONSTITUTIONAL: Denies fever or chills. HEENT: Denies blurred vision, vision changes, or eye pain. Denies hemoptysis CARDIOVASCULAR: Denies chest pain or pressure. RESPIRATORY: No shortness of breath. GASTROINTESTINAL: See HPI for pertinent findings HEMATOLOGIC: Denies bleeding disorders. GENITOURINARY: Denies any blood in urine or increased urinary frequency. SKIN: Denies pruitis. Denies rash. PHYSICAL EXAM: VITAL SIGNS: Reviewed GENERAL: Well-developed in no acute distress. HEENT: No sclera icterus. Extraocular movements grossly intact. Moist buccal mucosa. Head is atraumatic, normocephalic. No nasal drainage. ABDOMEN: Soft. Nondistended. Nontender NEUROLOGIC: Alert and oriented. Cranial nerves II through XII grossly intact. LABORATORY DATA: WBC 8.6 Hgb 9.6 platelets 267 INR 1.0 Sodium is 139 potassium 3.8 creatinine 0.93 Lactic acid 1.6 troponin negative Lipase 106 IMAGING: CT scan abdomen pelvis reports postoperative changes with apparent hiatal hernia repair. Dilated intrathoracic esophagus with narrowing at the esophageal junction suggesting a partial obstruction at the surgical site. Fatty liver. Focal gallbladder fundal wall thickening and enhancement. Gallbladder was collapsed on prior study. Partially contracted urinary bladder with nonspecific wall thickening. Chest CTA no pulmonary embolism. Severe emphysematous changes. ASSESSMENT: 1. Intractable nausea and vomiting. CT scan reports dilated intrathoracic esophagus with narrowing at the esophageal junction suggesting a partial obstruction at the surgical site 2. Status post recent Niesen fundoplication on 12/02/2023 PLAN: -Upper GI ordered for further evaluation of esophageal narrowing and partial obstruction at surgical site -Keep patient n.p.o. -Continue IV fluids -Continue supportive care Physician Rrt note has been reviewed by physician. Signing provider agrees with the documented findings, assessment, and plan of care. 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 "They tested my kidneys a couple of weeks ago and my level is down."- November 2023. "They thought I had a blood clot at one time in my leg." "I've had a rash on my arms, legs, and chest off and on since Apr." Uses 02 @ night 2L [place]. Per hospital record Jun 2022- Dx GI bleed, with 2 syncopal episodes at home, before arriving to ER via EMS. Hx of Pernicious anemia-per pt's he was dx 5 years ago with this and dx with A-fib at the same time. History of Any Multi-Drug Resistant Organisms: None Reported Past Surgical History: Hernia Repair Additional Past Surgical History / Comment(s): Inguinal hernia repair lt side. rt eye cataract removal, lt eye lense implant. Additional Past Anesthesia/Blood Transfusion Reaction / Comm: "I have a hard time waking up after surgery." Past Psychological History: Depression, PTSD Smoking Status: Former smoker Past Alcohol Use History: None Reported Past Drug Use History: None Reported - Past Family History Father Family Medical History: Cancer Medications and Allergies Home Medications Medication Instructions Recorded Confirmed Type Esomeprazole Magnesium [NexIUM] 40 mg PO DAILY 06/29/22 12/08/23 History Ipratropium [place] [Atrovent Hfa] 1 puff INHALATION RT-QID PRN 06/29/22 12/08/23 History HYDROcodone/APAP 5-325MG [[place] 1 tab PO Q6HR PRN 3 Days #12 tab 12/03/23 12/08/23 Rx 5-325] carvediloL [Coreg] 6.25 mg PO BID-W/MEALS 30 Days #60 12/03/23 12/08/23 Rx tab Fexofenadine HCl [[place] Allergy] 180 mg PO DAILY 12/04/23 12/08/23 History Montelukast [Singulair] 10 mg PO DAILY 12/04/23 12/08/23 History Ondansetron Odt [Zofran Odt] 4 mg PO Q8HR PRN #10 tab 12/04/23 12/08/23 Rx Salmeterol 50 mcg [Serevent Diskus] 1 puff INHALATION RT-BID 12/04/23 12/08/23 History busPIRone HCL 5 mg PO BID 12/04/23 12/08/23 History hydrOXYzine HCL [Atarax] 25 mg PO TID PRN 12/04/23 12/08/23 History Allergies Allergy/AdvReac Type Severity Reaction Status Date / Time losartan Allergy Rash/Hives Verified 12/08/23 08:41 Surgical - Exam Vital Signs Temp Pulse Resp BP Pulse Ox 97.3 F L 59 L 18 143/69 96 12/07/23 23:01 12/07/23 23:01 12/07/23 23:01 12/07/23 23:01 12/07/23 23:01 Results - Labs 12/08/23 01:39 12/08/23 01:39 Abnormal Lab Results - Last 24 Hours (Table) 12/08/23 12/08/23 12/08/23 Range/Units 01:39 01:39 02:52 Hgb 9.6 L (13.0-17.5) gm/dL Hct 32.9 L (39.0-53.0) % MCV 67.7 L (80.0-100.0) fL MCH 19.8 L (25.0-35.0) pg MCHC 29.2 L (31.0-37.0) g/dL RDW 18.9 H (11.5-15.5) % APTT 18.8 L (22.0-30.0) sec Chloride 112 H (98-107) mmol/L Carbon Dioxide 15 L (22-30) mmol/L BUN 21 H (9-20) mg/dL Calcium 8.3 L (8.4-10.2) mg/dL Albumin 3.3 L (3.5-5.0) g/dL Ur Specific [place] (1.001-1.035) Urine Ketones (Negative) 12/08/23 Range/Units 03:37 Hgb (13.0-17.5) gm/dL Hct (39.0-53.0) % MCV (80.0-100.0) fL MCH (25.0-35.0) pg MCHC (31.0-37.0) g/dL RDW (11.5-15.5) % APTT (22.0-30.0) sec Chloride (98-107) mmol/L Carbon Dioxide (22-30) mmol/L BUN (9-20) mg/dL Calcium (8.4-10.2) mg/dL Albumin (3.5-5.0) g/dL Ur Specific [place] >1.050 H (1.001-1.035) Urine Ketones 1+ H (Negative) Diabetes panel 12/08/23 Range/Units 01:39 Sodium 139 (137-145) mmol/L Potassium 3.8 (3.5-5.1) mmol/L Chloride 112 H (98-107) mmol/L Carbon Dioxide 15 L (22-30) mmol/L BUN 21 H (9-20) mg/dL Creatinine 0.93 (0.66-1.25) mg/dL Glucose 79 (74-99) mg/dL Calcium 8.3 L (8.4-10.2) mg/dL AST 33 (17-59) U/L ALT 30 (4-49) U/L Alkaline Phosphatase 74 (38-126) U/L Total Protein 6.4 (6.3-8.2) g/dL Albumin 3.3 L (3.5-5.0) g/dL Calcium panel 12/08/23 Range/Units 01:39 Calcium 8.3 L (8.4-10.2) mg/dL Albumin 3.3 L (3.5-5.0) g/dL Pituitary panel 12/08/23 Range/Units 01:39 Sodium 139 (137-145) mmol/L Potassium 3.8 (3.5-5.1) mmol/L Chloride 112 H (98-107) mmol/L Carbon Dioxide 15 L (22-30) mmol/L BUN 21 H (9-20) mg/dL Creatinine 0.93 (0.66-1.25) mg/dL Glucose 79 (74-99) mg/dL Calcium 8.3 L (8.4-10.2) mg/dL Adrenal panel 12/08/23 Range/Units 01:39 Sodium 139 (137-145) mmol/L Potassium 3.8 (3.5-5.1) mmol/L Chloride 112 H (98-107) mmol/L Carbon Dioxide 15 L (22-30) mmol/L BUN 21 H (9-20) mg/dL Creatinine 0.93 (0.66-1.25) mg/dL Glucose 79 (74-99) mg/dL Calcium 8.3 L (8.4-10.2) mg/dL Total Bilirubin 1.0 (0.2-1.3) mg/dL AST 33 (17-59) U/L ALT 30 (4-49) U/L Alkaline Phosphatase 74 (38-126) U/L Total Protein 6.4 (6.3-8.2) g/dL Albumin 3.3 L (3.5-5.0) g/dL
[2023-12-08] MEDS: DEXAMETHASONE SOD PHOSPHATE 4 MG/ML 1 ML VIAL IVP SCH (13:43)
--- NOTE | 2023-12-08 14:27 | FL ---
EXAMINATION TYPE: FL UGI air w esophagus DATE OF EXAM: 12/08/2023 12:29 PM CLINICAL INDICATION:Male, 73 years old with history of dysphagia; COMPARISON: CT 12/08/2023 TECHNIQUE: The procedure was explained and patient history elicited. All patient questions were ans wered prior to start of procedure. A gear coding machine operator radiograph of the abdomen was also reviewed. Multiple flu oroscopic spot images of the esophagus, stomach and duodenum were obtained following ingestion of liq uid barium and EZ-gas crystals. Fluoroscopic time: 35 seconds Radiographs taken: 134 DAP: [id number] cGycm2 FINDINGS: There is distention of the esophagus as seen on prior CT. Ingested contents is stacking throughout th e abdominal aorta and lower/inferior esophagus. Small amount of Isovue contrast did extend into the g astric lumen. No extravasation of contrast or evidence for mass. IMPRESSION: Partial obstruction of the gastroesophageal junction with upstream dilation of the esophagus with ing ested contents.
[2023-12-08] MEDS ORDERED: ONDANSETRON ODT 4 MG TAB PO PRN (17:50)
[2023-12-08] MEDS ORDERED: HYDROcodone/APAP 5-325MG 1 EACH TAB PO PRN (17:50)
[2023-12-08] MEDS: busPIRone HCl 5 MG TAB PO SCH (19:49)
--- NOTE | 2023-12-08 20:21 | P.PN ---
Progress Note - Text Progress Note Date: 12/08/23 the patient presents to cheating on his postoperative Opal diet. He states that he only had full liquids for 2 days. He then progressed to regular diet right away. Patient states that he had vomiting of chicken. Patient states that he has vomited up a large amount of solid food. He feels better today. Patient will be taken for diagnostic laparoscopy tomorrow.
[2023-12-08] MEDS: IPRATROPIUM-ALBUTEROL 3 ML NEB INHALATION SCH (21:06)
--- NOTE | 2023-12-09 02:49 | CONS ---
CONSULTATION SUBJECTIVE: Had upper GI swallow today for possible, he has partial obstruction of gastroesophageal junction with upstream dilation of the esophagus because of ingested contents. Because of partial bowel obstruction status post Opal, will need to be repaired. Medical consult. MEDICAL HISTORY: He has history of atrial fibrillation, diastolic heart failure, COPD, CVA, TIA, DVT, GERD, hypertension, osteoarthritis, sleep apnea, pernicious anemia. PAST SURGICAL HISTORY: Hiatal hernia repair, inguinal hernia repair. SOCIAL HISTORY: No drugs. REVIEW OF SYSTEMS: A 14-point review of systems otherwise negative. PHYSICAL EXAMINATION: VITAL SIGNS: Stable, afebrile. CARDIOVASCULAR: S1, S2. LUNGS: Transmitted upper sounds. GI: Soft, nondistended, nontender. NEUROLOGIC: Cranial nerves intact. LABORATORY DATA: White count 8.6, hemoglobin is 9.6, platelets 267, INR 1.0. Sodium 139, potassium 3.8, lactic acid 1.6. Troponin negative. Lipase 106. CT abdomen and pelvis showed a possible postoperative change with a hiatal hernia, partial obstruction surgical site which was seen on a swallow eval and severe emphysema changes on CAT scan. Upper GI shows esophageal narrowing and partial obstruction. N.p.o., possibly surgical repair tomorrow. Prognosis guarded. Continue home medications. MMODL / IJN: [id number] /
[2023-12-09] MEDS: carvediloL 6.25 MG TAB PO SCH (09:01)
[2023-12-09] MEDS: LORATADINE 10 MG TAB PO SCH (09:03)
[2023-12-09] MEDS: PANTOPRAZOLE 40 MG TABLET PO SCH (09:03)
[2023-12-09] MEDS: MONTELUKAST 10 MG TAB PO SCH (09:03)
[2023-12-09] MEDS: IV FLUID CONTINUATION 1,000 ML IV ONE ×2 (09:34→10:56)
[2023-12-09] MEDS: ONDANSETRON 4 MG/2 ML VIAL IVP ONE (09:48)
[2023-12-09] MEDS: HEPARIN SODIUM,PORCINE 5,000 UNIT/ML 1 ML VIAL SQ ONE (09:48)
[2023-12-09] MEDS ORDERED: GLYCOPYRROLATE 0.2 MG/ML 2 ML VIAL ONE (09:55)
[2023-12-09] MEDS ORDERED: fentaNYL (PF) 50 MCG/ML 2 ML AMP ONE (09:55)
[2023-12-09] MEDS ORDERED: ROCURONIUM 10 MG/ML (5 ML VIAL) IV ONE (09:55)
[2023-12-09] MEDS ORDERED: PROPOFOL 10 MG/ML 20 ML VIAL IV ONE (09:55)
[2023-12-09] MEDS ORDERED: NEOSTIGMINE 1 MG/ML 10 ML VIAL ONE (09:55)
[2023-12-09] MEDS ORDERED: MIDAZOLAM 2 MG/2 ML VIAL ONE (09:55)
[2023-12-09] MEDS ORDERED: KETOROLAC 15 MG/ML 1 ML VIAL ONE (09:55)
[2023-12-09] MEDS ORDERED: LIDOCAINE 1% INJ 10MG/ML (20 ML MDV) ONE (09:55)
[2023-12-09] MEDS ORDERED: SUCCINYLCHOLINE CHLORIDE 200 MG/10 ML VIAL IV ONE (09:55)
[2023-12-09] MEDS: SODIUM CHLORIDE 0.9% 50 ML with ceFAZolin 2,000 MG IV ONE (10:00)
[2023-12-09] MEDS: LIDOCAINE 1%-EPI 1:100,000 20 ML VIAL SQ ONE ×2 (10:26)
--- NOTE | 2023-12-09 11:00 | P.OP ---
Date of Procedure: 12/09/23 Preoperative Diagnosis: dysphagia Postoperative Diagnosis: dysphagia Procedure(s) Performed: diagnostic laparoscopy Anesthesia: JATINDER Surgeon: Tacos Early Estimated Blood Loss (ml): 2 Pathology: none sent Condition: stable Disposition: PACU Indications for Procedure: this a 73-year-old male who underwent previous Opal fundal plication. Patient did not follow the postoperative dietary requirements. Inset having full liquids for 2 weeks patient was eating solid foods and is he went home. Patient had several episodes of vomiting at home. His esophagram upper GI shows a partial obstruction of the GE junction. This most likely due to edema. Description of Procedure: the patient's placed on the operative table in supine position. He received general endotracheal tube anesthesia. He was then placed in dorsal 5 position his abdomen was prepped and draped usual fashion. The skin incision sites were made at the previous incision sites. And then using a 5 mm optical trocar in the left periumbilical area the peritoneal cavity is entered. The abdomen was insufflated. After adequate insufflation the 5 mm laparoscope was placed. Cavity. Next a another 5 mm trocar was placed in the right upper quadrant, right lateral, left lateral and the left epigastric position. The left lateral lobe of liver removed liver was retracted. There appeared to be some swelling at the GE junction. The patient's fundal plication wrap was examined. The wrap appeared to be intact. Due to the patient's symptoms of dysphagia and the swelling of the GE junction decided to undo the wrap. The 2 sutures holding the wrap in place were cut. The wrap was then converted to 180 wrap. The abdomen was irrigated there is no bleeding seen. The trochars withdrawn. The skin was closed interrupted 3-0 Monocryl suture. Dermabond was applied. Patient top she will well. He was sent to recovery room in stable condition.
[2023-12-09] MEDS: HYDROmorphone 0.5 MG/0.5 ML SYRINGE IVP ONE (11:12)
[2023-12-09 20:04] VITALS: TEMP 97.4
[2023-12-09] MEDS: ACETAMINOPHEN TAB 325 MG TAB PO PRN (23:18)
[2023-12-10 10:44] VITALS: BP 151/74
--- NOTE | 2023-12-10 11:59 | P.DS ---
Providers Date of admission: 12/08/23 10:11 Expected date of discharge: 12/10/23 Attending physician: Tacos Early Consults: 12/08/23 15:23 Consult Physician Routine Consulting Provider: Pavan Hassan Consult Reason/Comments: medical management Do you want consulting provider notified?: Yes Primary care physician: Pavan Hassan [facility] Course: Discharge diagnosis 1. Dysphagia status post diagnostic laparoscopy 2. Partial obstruction of the gastroesophageal junction Hospital course This is a 73-year-old male who presented to the hospital with complaints of nausea and vomiting since his Niesen fundoplication on 12/02/2023. CT scan abdomen and pelvis had reported dilated intrathoracic esophagus with narrowing at the esophageal junction suggesting a partial obstruction at the surgical site. Upper GI reported partial obstruction of the gastroesophageal junction with upstream dilation of the esophagus with ingested contents. Patient had cheated on his diet and ate solid foods. Patient is status post diagnostic laparoscopy. Patient is tolerating diet. Pain is controlled. He is up and ambulating. He did have a bowel movement. He is afebrile. He is stable for discharge. Please refer to chart for any further details. Physician Environmental Air Specialist note has been reviewed by physician. Signing provider agrees with the documented findings, assessment, and plan of care. Patient Condition at Discharge: Stable Plan - Discharge Summary Discharge Rx Participant: Yes New Discharge Prescriptions: New Acetaminophen Tab [Tylenol Tab] 650 mg PO Q4H PRN #30 tablet PRN Reason: Pain Continue Ipratropium [place] [Atrovent Hfa] 1 puff INHALATION RT-QID PRN PRN Reason: Shortness Of Breath HYDROcodone/APAP 5-325MG [[place] 5-325] 1 tab PO Q6HR PRN 3 Days #12 tab PRN Reason: Pain carvediloL [Coreg] 6.25 mg PO BID-W/MEALS 30 Days #60 tab Montelukast [Singulair] 10 mg PO DAILY busPIRone HCL 5 mg PO BID Esomeprazole Magnesium [NexIUM] 40 mg PO DAILY hydrOXYzine HCL [Atarax] 25 mg PO TID PRN PRN Reason: Anxiety Salmeterol 50 mcg [Serevent Diskus] 1 puff INHALATION RT-BID Fexofenadine HCl [[place] Allergy] 180 mg PO DAILY Ondansetron Odt [Zofran ODT] 4 mg PO Q8HR PRN #10 tab PRN Reason: Nausea Discharge Medication List Esomeprazole Magnesium [NexIUM] 40 mg PO DAILY 06/29/22 [History] Ipratropium [place] [Atrovent Hfa] 1 puff INHALATION RT-QID PRN 06/29/22 [History] HYDROcodone/APAP 5-325MG [[place] 5-325] 1 tab PO Q6HR PRN 3 Days #12 tab 12/03/23 [Rx] carvediloL [Coreg] 6.25 mg PO BID-W/MEALS 30 Days #60 tab 12/03/23 [Rx] Fexofenadine HCl [[place] Allergy] 180 mg PO DAILY 12/04/23 [History] Montelukast [Singulair] 10 mg PO DAILY 12/04/23 [History] Ondansetron Odt [Zofran ODT] 4 mg PO Q8HR PRN #10 tab 12/04/23 [Rx] Salmeterol 50 mcg [Serevent Diskus] 1 puff INHALATION RT-BID 12/04/23 [History] busPIRone HCL 5 mg PO BID 12/04/23 [History] hydrOXYzine HCL [Atarax] 25 mg PO TID PRN 12/04/23 [History] Acetaminophen Tab [Tylenol Tab] 650 mg PO Q4H PRN #30 tablet 12/10/23 [Rx] Follow up Appointment(s)/Referral(s): Pavan Hassan MD [Primary Care Provider] - 1-2 days Tacos Early MD [STAFF PHYSICIAN] - 1 Week Activity/Diet/Wound Care/Special Instructions: No driving while taking [place] No lifting over 10 pounds You may shower. No soaking or tub baths for 2 weeks Very light activity until you are reevaluated at your follow up appointment with your surgeon Continue a full liquid diet until seen by surgeon. Discharge Disposition: HOME SELF-CARE
[2023-12-10 12:30] VITALS: RESP 18
[2023-12-10 12:31] VITALS: PULSE 65
== END 2023-12-10 15:16 | disposition home or self-care (01) | DRG 327 ==
LOC: EC 23:00 → 6NMEDSUR 12-08 03:18 → 4SSUR 12-08 04:17 → OBSVTOIN 12-08 10:11 → 1SOBS 12-08 15:38
PROVIDERS: ADMIT Surgery; ATTEND Surgery
PROC: 0DV44ZZ Restriction of Esophagogastric Junction, Percutaneous Endoscopic Approach (ICD-10-PCS; principal; 2023-12-09 10:40)
DX: K91.89 Other postprocedural complications and disorders of digestive system (principal); I50.32 Chronic diastolic (congestive) heart failure; K22.2 Esophageal obstruction; I11.0 Hypertensive heart disease with heart failure; K76.0 Fatty (change of) liver, not elsewhere classified; D51.0 Vitamin B12 deficiency anemia due to intrinsic factor deficiency; J44.9 Chronic obstructive pulmonary disease, unspecified; F32.A Depression, unspecified; I48.91 Unspecified atrial fibrillation; F43.10 Post-traumatic stress disorder, unspecified; G47.30 Sleep apnea, unspecified; K21.9 Gastro-esophageal reflux disease without esophagitis; L98.9 Disorder of the skin and subcutaneous tissue, unspecified; M19.90 Unspecified osteoarthritis, unspecified site; K59.00 Constipation, unspecified; Z79.899 Other long term (current) drug therapy; Z87.891 Personal history of nicotine dependence; Z86.718 Personal history of other venous thrombosis and embolism; Z88.8 Allergy status to other drugs, medicaments and biological substances
CPT/HCPCS: 36415; 71275; 74177; 74246; 80053; 81003; 82150; 83605; 83690; 84484; 85025; 85610; 85730; 93005; 94640; 94760; 96361; 96374; 96375; 96376; 99285

== ENCOUNTER → 2024-01-23 | Outpatient (CLI) | payer MEDICARE ==
--- NOTE | 2024-01-26 14:46 | FL ---
ESOPHOGRAM. HISTORY: Dysphagia Esophagram was performed per the air contrast technique. The patient swallowed barium and effervesce nt crystals without difficulty or delay. Esophageal peristalsis and motility appear to be within normal limits. There is no evidence for filling defect, mass or diverticulum. Small reducible hiatal hernia seen. Subsequently single contrast cervical esophagram was performed which fails demonstrate evidence for a spiration penetration or mass. IMPRESSION: Small reducible hiatal hernia seen.
== END | disposition home or self-care (01) ==
LOC: RADUSWWP 08:25
PROVIDERS: ATTEND Family Medicine
DX: K44.9 Diaphragmatic hernia without obstruction or gangrene (principal); R13.10 Dysphagia, unspecified
CPT/HCPCS: 74220

== ENCOUNTER 2024-03-04 20:07 | Emergency (ER) | payer MEDICARE ==
[2024-03-04 20:16] VITALS: TEMP 97.2
--- NOTE | 2024-03-04 20:24 | ED ---
Weakness HPI - General Chief complaint: Weakness Stated complaint: General weakness Time Seen by Provider: 03/04/24 20:17 Source: patient, EMS, RN notes reviewed Mode of arrival: EMS Limitations: no limitations - History of Present Illness Initial comments: 73-year-old male presents emergency department complaint of weakness, shortness of breath. Patient states he has COPD states he is having increasing symptoms he states that he does not have any current chest pain states he does get more short breath with exertion denies any leg pain or leg swelling. He states is not as wheezing denies fevers or chills no nausea vomiting diarrhea constipation - Related Data Home Medications Medication Instructions Recorded Confirmed Esomeprazole Magnesium [NexIUM] 40 mg PO DAILY 06/29/22 12/08/23 Ipratropium [place] [Atrovent Hfa] 1 puff INHALATION RT-QID PRN 06/29/22 12/08/23 Fexofenadine HCl [[place] Allergy] 180 mg PO DAILY 12/04/23 12/08/23 Montelukast [Singulair] 10 mg PO DAILY 12/04/23 12/08/23 Salmeterol 50 mcg [Serevent Diskus] 1 puff INHALATION RT-BID 12/04/23 12/08/23 busPIRone HCL 5 mg PO BID 12/04/23 12/08/23 hydrOXYzine HCL [Atarax] 25 mg PO TID PRN 12/04/23 12/08/23 Previous Rx's Medication Instructions Recorded HYDROcodone/APAP 5-325MG [[place] 1 tab PO Q6HR PRN 3 Days #12 tab 12/03/23 5-325] carvediloL [Coreg] 6.25 mg PO BID-W/MEALS 30 Days #60 12/03/23 tab Ondansetron Odt [Zofran ODT] 4 mg PO Q8HR PRN #10 tab 12/04/23 Acetaminophen Tab [Tylenol Tab] 650 mg PO Q4H PRN #30 tablet 12/10/23 predniSONE 50 mg PO DAILY #4 tab 03/04/24 predniSONE 50 mg PO DAILY #4 tab 03/04/24 Allergies Allergy/AdvReac Type Severity Reaction Status Date / Time losartan Allergy Rash/Hives Verified 12/08/23 08:41 Review of Systems ROS Statement: Those systems with pertinent positive or pertinent negative responses have been documented in the HPI. ROS Other: All systems not noted in ROS Statement are negative. 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 "They tested my kidneys a couple of weeks ago and my level is down."- November 2023. "They thought I had a blood clot at one time in my leg." "I've had a rash on my arms, legs, and chest off and on since Apr." Uses 02 @ night 2L N/C. Per hospital record Jun 2022- Dx GI bleed, with 2 syncopal episodes at home, before arriving to ER via EMS. Hx of Pernicious anemia-per pt's he was dx 5 years ago with this and dx with A-fib at the same time. History of Any Multi-Drug Resistant Organisms: None Reported Past Surgical History: Hernia Repair Additional Past Surgical History / Comment(s): Inguinal hernia repair lt side. rt eye cataract removal, lt eye lense implant. Additional Past Anesthesia/Blood Transfusion Reaction / Comment(s): "I have a hard time waking up after surgery." Past Psychological History: Depression, PTSD Smoking Status: Former smoker Past Alcohol Use History: None Reported Past Drug Use History: None Reported - Past Family History Father Family Medical History: Cancer General Exam Limitations: no limitations General appearance: alert, in no apparent distress Head exam: Present: atraumatic, normocephalic, normal inspection Eye exam: Present: normal appearance, PERRL, EOMI. Absent: scleral icterus, conjunctival injection, periorbital swelling ENT exam: Present: normal exam, mucous membranes moist Neck exam: Present: normal inspection. Absent: tenderness, meningismus, lymphadenopathy Respiratory exam: Absent: normal lung sounds bilaterally, respiratory distress, wheezes, rales, rhonchi, stridor Cardiovascular Exam: Present: normal rhythm, bradycardia, normal heart sounds. Absent: systolic murmur, diastolic murmur, rubs, gallop, clicks GI/Abdominal exam: Present: soft, normal bowel sounds. Absent: distended, tenderness, guarding, rebound, rigid Course Vital Signs 03/04/24 03/04/24 03/04/24 20:09 21:22 21:54 Temperature 97.2 F L Pulse Rate 54 L 56 L 60 Respiratory 18 16 Rate Blood Pressure 144/74 124/59 O2 Sat by Pulse 99 97 Oximetry 03/04/24 03/04/24 22:02 22:58 Temperature Pulse Rate 62 58 L Respiratory 18 Rate Blood Pressure 130/66 O2 Sat by Pulse 99 Oximetry EKG Findings - EKG Comments: EKG Findings:: EKG performed at 20: 23 sinus rhythm with noted PVCs, rate 63 QRS 192 QRS 90 QT/QTc 451/459 - EKG Results: EKG: interpreted by JAY Medical Decision Making - Medical Decision Making Was pt. sent in by a medical professional or institution (, PA, [employer], urgent care, hospital, or longterm...) When possible be specific @ -No Did you speak to anyone other than the patient for history (EMS, parent, family, police, friend...)? What history was obtained from this source @ -No Did you review nursing and triage notes (agree or disagree)? Why? @ -I reviewed and agree with nursing and triage notes Were old charts reviewed (outside hosp., previous admission, EMS record, old EKG, old radiological studies, urgent care reports/EKG's, longterm records)? Report findings @ -No old charts were reviewed Differential Diagnosis (chest pain, altered mental status, abdominal pain women, abdominal pain men, vaginal bleeding, weakness, fever, dyspnea, syncope, headache, dizziness, GI bleed, back pain, seizure, CVA, palpatations, mental health, musculoskeletal)? @ -Differential Dyspnea: Coronary syndrome, arrhythmia, tamponade, asthma, COPD, pulmonary embolism, pneumonia, pneumothorax, pulmonary effusion, anaphylaxis, diabetic ketoacidosis, flailed chest, pulmonary contusion, diaphragmatic rupture, anemia, neuromuscula r, this is not meant to be an all-inclusive list. EKG interpreted by me (3pts min.). @ -As above X-rays interpreted by me (1pt min.). @ -Chest showed no acute infiltrate, COPD changes CT interpreted by me (1pt min.). @ -None done U/S interpreted by me (1pt. min.). @ -None done What testing was considered but not performed or refused? (CT, X-rays, U/S, labs)? Why? @ -None What meds were considered but not given or refused? Why? @ -None Did you discuss the management of the patient with other professionals (professionals i.e. , PA, [employer], lab, RT, psych nurse, director social, newcomer hostess, teacher, chief informatics officer, complex case manager)? Give summary @ -No Was smoking cessation discussed for >3mins.? @ -No Was critical care preformed (if so, how long)? @ -No Were there social determinants of health that impacted care today? How? (Homelessness, low income, unemployed, alcoholism, drug addiction, transpor tation, low edu. Level, literacy, decrease access to med. care, fdc, rehab)? @ -No Was there de-escalation of care discussed even if they declined (Discuss DNR or withdrawal of care, Hospice)? DNR status @ -No What co-morbidities impacted this encounter? (DM, HTN, Smoking, COPD, CAD, Cancer, CVA, ARF, Chemo, Hep., AIDS, mental health diagnosis, sleep apnea, morbid obesity)? @ -[COPD Was patient admitted / discharged? Hospital course, mention meds given and route, prescriptions, significant lab abnormalities, going to OR and other pertinent info. @ -disCharge patient was able to ambulate with no increasing dyspnea or complaints of chest pain. Patient had a negative workup. He did feel improved after IV steroids and DuoNeb treatment. Undiagnosed new problem with uncertain prognosis? @ -No Drug Therapy requiring intensive monitoring for toxicity (Heparin, Nitro, Insulin, Cardizem)? @ -No Were any procedures done? @ -No Diagnosis/symptom? @ -COPD Acute, or Chronic, or Acute on Chronic? @ -Acute Uncomplicated (without systemic symptoms) or Complicated (systemic symptoms)? @ -Complicated Side effects of treatment? @ -No Exacerbation, Progression, or Severe Exacerbation? @ -Exacerbated Poses a threat to life or bodily function? How? (Chest pain, [place], [place], pneumonia, PE, COPD, DKA, ARF, appy, cholecystitis, CVA, Diverticulitis, Homicidal, Suicidal, threat to staff... and all critical care pts) @ -No - Lab Data Result diagrams: 03/04/24 20:59 03/04/24 20:59 Lab Results 03/04/24 03/04/24 03/04/24 Range/Units 20:59 20:59 20:59 WBC 5.8 (3.8-10.6) k/uL RBC 5.21 (4.30-5.90) m/uL Hgb 10.3 L (13.0-17.5) gm/dL Hct 35.1 L (39.0-53.0) % MCV 67.3 L (80.0-100.0) fL MCH 19.8 L (25.0-35.0) pg MCHC 29.5 L (31.0-37.0) g/dL RDW 17.7 H (11.5-15.5) % Plt Count 261 (150-450) k/uL MPV 7.0 Neutrophils % 72 % Lymphocytes % 12 % Monocytes % 8 % Eosinophils % 5 % Basophils % 1 % Neutrophils # 4.2 (1.3-7.7) k/uL Lymphocytes # 0.7 L (1.0-4.8) k/uL Monocytes # 0.5 (0-1.0) k/uL Eosinophils # 0.3 (0-0.7) k/uL Basophils # 0.1 (0-0.2) k/uL Hypochromasia Marked Anisocytosis Slight Microcytosis Marked PT 10.9 (10.0-12.5) sec INR 1.0 (<1.2) APTT 22.8 (22.0-30.0) sec Sodium 140 (137-145) mmol/L Potassium 4.1 (3.5-5.1) mmol/L Chloride 108 H (98-107) mmol/L Carbon Dioxide 22 (22-30) mmol/L Anion Gap 10 mmol/L BUN 13 (9-20) mg/dL Creatinine 1.20 (0.66-1.25) mg/dL Est GFR (CKD-EPI)AfAm 69 (>60 ml/min/1.73 sqM) Est GFR (CKD-EPI)NonAf 60 (>60 ml/min/1.73 sqM) Glucose 106 H (74-99) mg/dL Plasma Lactic Acid Dayday (0.7-2.0) mmol/L Calcium 9.3 (8.4-10.2) mg/dL Magnesium 2.0 (1.6-2.3) mg/dL Total Bilirubin 0.8 (0.2-1.3) mg/dL AST 21 (17-59) U/L ALT 14 (4-49) U/L Alkaline Phosphatase 68 (38-126) U/L Troponin I (0.000-0.034) ng/mL NT-Pro-B Natriuret Pep 1240 pg/mL Total Protein 7.0 (6.3-8.2) g/dL Albumin 4.2 (3.5-5.0) g/dL 03/04/24 03/04/24 Range/Units 20:59 20:59 WBC (3.8-10.6) k/uL RBC (4.30-5.90) m/uL Hgb (13.0-17.5) gm/dL Hct (39.0-53.0) % MCV (80.0-100.0) fL MCH (25.0-35.0) pg MCHC (31.0-37.0) g/dL RDW (11.5-15.5) % Plt Count (150-450) k/uL MPV Neutrophils % % Lymphocytes % % Monocytes % % Eosinophils % % Basophils % % Neutrophils # (1.3-7.7) k/uL Lymphocytes # (1.0-4.8) k/uL Monocytes # (0-1.0) k/uL Eosinophils # (0-0.7) k/uL Basophils # (0-0.2) k/uL Hypochromasia Anisocytosis Microcytosis PT (10.0-12.5) sec INR (<1.2) APTT (22.0-30.0) sec Sodium (137-145) mmol/L Potassium (3.5-5.1) mmol/L Chloride (98-107) mmol/L Carbon Dioxide (22-30) mmol/L Anion Gap mmol/L BUN (9-20) mg/dL Creatinine (0.66-1.25) mg/dL Est GFR (CKD-EPI)AfAm (>60 ml/min/1.73 sqM) Est GFR (CKD-EPI)NonAf (>60 ml/min/1.73 sqM) Glucose (74-99) mg/dL Plasma Lactic Acid Dayday 1.4 (0.7-2.0) mmol/L Calcium (8.4-10.2) mg/dL Magnesium (1.6-2.3) mg/dL Total Bilirubin (0.2-1.3) mg/dL AST (17-59) U/L ALT (4-49) U/L Alkaline Phosphatase (38-126) U/L Troponin I <0.012 (0.000-0.034) ng/mL NT-Pro-B Natriuret Pep pg/mL Total Protein (6.3-8.2) g/dL Albumin (3.5-5.0) g/dL Disposition Clinical Impression: COPD exacerbation Disposition: HOME SELF-CARE Condition: Stable Instructions (If sedation given, give patient instructions): COPD (Chronic Obstructive Pulmonary Disease) (ED) Additional Instructions: Please return to the Emergency Department if symptoms worsen or any other concerns. Prescriptions: predniSONE 50 mg PO DAILY #4 tab predniSONE 50 mg PO DAILY #4 tab Is patient prescribed a controlled substance at d/c from ED?: No Referrals: Pavan Hassan MD [Primary Care Provider] - 1-2 days Time of Disposition: 22:44
[2024-03-04] MEDS: SODIUM CHLORIDE 0.9% 500 ML 500 ML IV STA (21:05)
[2024-03-04 21:09] LABS: Anisocytosis Slight; Basophils # (A) 0.1 k/uL (0-0.2); Basophils % (A) 1 %; Eosinophils # (A) 0.3 k/uL (0-0.7); Eosinophils % (A) 5 %; HCT 35.1 % (39.0-53.0); HGB 10.3 gm/dL (13.0-17.5); Hypochromasia Marked; Lymphocytes # (A) 0.7 k/uL (1.0-4.8); Lymphocytes % (A) 12 %; MCH 19.8 pg (25.0-35.0); MCHC 29.5 g/dL (31.0-37.0); MCV 67.3 fL (80.0-100.0); Microcytosis Marked; Monocytes # (A) 0.5 k/uL (0-1.0); Monocytes % (A) 8 %; Neutrophils # (A) 4.2 k/uL (1.3-7.7); Neutrophils % (A) 72 %; Platelet Count 261 k/uL (150-450); RBC 5.21 m/uL (4.30-5.90); RDW 17.7 % (11.5-15.5); WBC 5.8 k/uL (3.8-10.6)
[2024-03-04] MEDS: methylPREDNISolone SOD SUCCI 125 MG/2 ML VIAL IV STA (21:18)
[2024-03-04 21:21] LABS: Partial Thromboplastin Time 22.8 sec (22.0-30.0); Prothrombin Time 10.9 sec (10.0-12.5)
[2024-03-04 21:23] LABS: ALT 14 U/L (4-49); AST 21 U/L (17-59); African American GFR (CKD) 69 (>60 ml/min/1.73 sqM); Albumin 4.2 g/dL (3.5-5.0); Alkaline Phosphatase 68 U/L (38-126); Anion Gap 10 mmol/L; Blood Urea Nitrogen 13 mg/dL (9-20); Calcium 9.3 mg/dL (8.4-10.2); Carbon Dioxide 22 mmol/L (22-30); Chloride 108 mmol/L (98-107); Glucose 106 mg/dL (74-99); Non-African American GFR(CKD) 60 (>60 ml/min/1.73 sqM); Potassium 4.1 mmol/L (3.5-5.1); Sodium 140 mmol/L (137-145); Total Bilirubin 0.8 mg/dL (0.2-1.3)
[2024-03-04 21:31] LABS: NT-Pro-B-Type Natriuretic Pept 1240 pg/mL
[2024-03-04] MEDS: IPRATROPIUM-ALBUTEROL 3 ML NEB INHALATION STA (21:52)
--- NOTE | 2024-03-04 22:15 | XR ---
EXAMINATION TYPE: XR chest 2V DATE OF EXAM: 03/04/2024 9:14 PM CLINICAL INDICATION:Male, 73 years old with history of Weakness; [facility] COMPARISON: Chest radiographs from TECHNIQUE: XR chest 2V Frontal view of the chest. FINDINGS: Mild prominence of the interstitial markings bilaterally likely chronic in nature. No pneumothorax. C ardiomediastinal silhouette within normal limits. No acute osseous abnormalities. IMPRESSION: No acute cardiopulmonary disease/process.
[2024-03-04 22:59] VITALS: BP 130/66; PULSE 58; RESP 18
== END 2024-03-04 22:58 | disposition home or self-care (01) ==
LOC: EC 20:07
DX: J44.1 Chronic obstructive pulmonary disease with (acute) exacerbation (principal); Z87.891 Personal history of nicotine dependence; Z88.8 Allergy status to other drugs, medicaments and biological substances
CPT/HCPCS: 36415; 94640; 93005; 83880; 80053; 83605; 83735; 84484; 85025; 85610; 85730; 71046; 99285; 96374; J2919